=== PATIENT | female | born 1945 | race Caucasian/White ===

== ENCOUNTER → 2018-03-06 06:58 | Outpatient (CLI) | payer MEDICARE, SELFPAY ==
--- NOTE | 2018-03-06 07:29 | MRI_ITS ---
STUDY: MRI LEFT FOREFOOT WITHOUT CONTRAST REASON FOR EXAM: Female, 72 years old. Pain across the ball the foot times one year. TECHNIQUE: Standardized fat and water weighted pulse sequences were obtained in all 3 orthogonal planes. COMPARISON: None. FINDINGS: There is degenerative arthrosis of the metatarsophalangeal joint of the hallux with a hallux valgus deformity. Normal tibial and fibular sesamoids, with normal sesamoids-first metatarsal articulations. Normal interphalangeal joint of the hallux. Normal proximal and distal phalanges of the great toe. Normal medial and lateral heads of the flexor hallucis brevis tendons. Normal flexor and extensor hallucis longus tendons. Normal second through fifth metatarsophalangeal (MTP) joints. Normal interphalangeal joints of the second through fifth toes. Normal proximal, middle and distal phalanges of the second through fifth toes. Normal first through fourth intermetatarsal spaces. Normal flexor and extensor tendons of the second through fifth toes. Normal visualized metatarsi. Normal intrinsic muscles of the forefoot. There is focal diminished signal on the dorsal aspect adjacent to the proximal second metatarsal with calcification or small foreign body, series 6 image 06/09. MRI/Lower Ext/No Jt/w/o IMPRESSION: No fracture or periosteal reaction. No dominant mass or fluid collection. Electronically Signed: Tao Trimble MD at 9:37 EDT , Service support ,
== END ==
PROVIDERS: Family Provider Preventive Medicine Occupational Medicine; PCP Preventive Medicine Occupational Medicine; Visit Provider Podiatrist
DX: G57.60 Lesion of plantar nerve, unspecified lower limb (principal); M19.072 Primary osteoarthritis, left ankle and foot
CPT/HCPCS: 73718

== ENCOUNTER 2020-10-19 14:34 | Outpatient (RCR) | payer MEDICARE, SELFPAY ==
[2014-06-03 21:04] VITALS: BMI 19.7
[2020-10-19] MEDS: COVID-19 VACC, MRNA(PFIZER)/PF 30 MCG/0.3 ML SYRINGE IM (10:42)
[2020-11-09] MEDS: COVID-19 VACC, MRNA(PFIZER)/PF 30 MCG/0.3 ML SYRINGE IM (10:27)
== END 2020-10-19 23:59 ==
LOC: IMMUN 14:34
PROVIDERS: PCP Preventive Medicine Occupational Medicine; Visit Provider Family Medicine
DX: Z23 Encounter for immunization (principal)
CPT/HCPCS: 0001A; 0002A

== ENCOUNTER → 2022-04-03 | Outpatient (CLI) | payer MEDICARE, SELFPAY ==
--- NOTE | 2022-04-03 10:38 | ECHOD_ITS ---
Reason For Study: afib Procedure This was a 2D Doppler, Color Flow transthoracic echocardiogram. Exam performed in department. Left Ventricle Normal LV size. Left ventricular systolic function is normal. The estimated ejection fraction is 60 %. No regional wall motion abnormalities noted. Right Ventricle Normal RV size. Normal systolic function. Atria Normal left atrium. Normal right atrium. Mitral Valve Normal mitral valve. Tricuspid Valve Normal tricuspid valve. Mild (1+) tricuspid valve insufficiency. Pulmonary artery systolic pressure is 31 mmHg. Aortic Valve Normal aortic valve. Trisinus/trileaflet aortic valve. Pulmonic Valve Normal pulmonic valve. Great Vessels Normal aortic root. The pulmonary artery is normal size. Normal inferior vena cava. Pericardium/Pleural No pericardial effusion. MMode/2D Measurements & Calculations LVIDd: 4.5 cm IVSd: 0.78 cm Ao root diam: 3.2 cm LVIDs: 2.9 cm LVPWd: 0.69 cm RVDd: 2.7 cm FS: 34.6 % LAV(MOD-bp): 50.2 ml LVAd ap4: 22.4 cm2 SV(MOD-sp4): 40.6 ml LAV(MOD-bp) Indexed: 32.5 ml/m2 LVLd ap4: 6.8 cm LAV(MOD-sp2): 88.2 ml EDV(MOD-sp4): 60.4 ml LAV(MOD-sp4): 23.7 ml EDV(sp4-el): 62.8 ml LVAs ap4: 10.7 cm2 LVLs ap4: 5.3 cm ESV(MOD-sp4): 19.8 ml ESV(sp4-el): 18.3 ml EF(MOD-sp4): 67.1 % EF(sp4-el): 70.9 % SV(sp4-el): 44.5 ml LA A4 area: 11.4 cm2 LA dimension(2D): 3.2 cm RA A4 area: 14.4 cm2 Time Measurements MV dec time: 0.26 sec Doppler Measurements & Calculations MV E max santy: 68.7 cm/sec Lat Peak E' Santy: 6.2 cm/sec Med Peak E' Santy: 6.0 cm/sec MV A max santy: 60.3 cm/sec E/E' lat: 11.1 E/E' med: 11.5 MV E/A: 1.1 MV V2 max: 74.7 cm/sec Ao V2 max: 134.6 cm/sec MV max P.2 mmHg MV dec slope: 271.2 cm/sec2 Ao max P.3 mmHg MV V2 mean: 42.9 cm/sec Ao V2 mean: 94.8 cm/sec MV mean P.87 mmHg Ao mean P.1 mmHg MV V2 VTI: 33.0 cm Ao V2 VTI: 37.5 cm LV V1 max: 101.7 cm/sec PA V2 max: 79.8 cm/sec TR max santy: 262.5 cm/sec LV V1 max P.1 mmHg TR max P.6 mmHg LV V1 mean P.1 mmHg LV V1 mean: 67.4 cm/sec LV V1 VTI: 26.3 cm ECHO/Echo Complete Interpretation Summary Normal LV size. Left ventricular systolic function is normal. The estimated ejection fraction is 60 %. Pulmonary artery systolic pressure is 31 mmHg. Ordering Physician: Michel Lilly Referring Physician: Michel Lilly Performed By: Giuliana Capps RCS
== END | disposition home or self-care (01) ==
LOC: CVS 10:37
PROVIDERS: PCP Preventive Medicine Occupational Medicine; Referring Provider Internal Medicine Cardiovascular Disease; Visit Provider Internal Medicine Cardiovascular Disease
DX: R07.9 Chest pain, unspecified (principal); I48.91 Unspecified atrial fibrillation; I48.92 Unspecified atrial flutter
CPT/HCPCS: 93306

== ENCOUNTER → 2022-04-29 | Outpatient (CLI) | payer MEDICARE, SELFPAY ==
--- NOTE | 2022-04-29 09:21 | STRESSREP ---
Stress Test Report Pharmacologic mild cardial perfusion stress test. 76-year-old lady with a history of atrial fibrillation. Stress protocol: Resting EKG demonstrates normal sinus rhythm with a rate of 60 bpm normal intervals are noted resting blood pressure is 170/72 mmHg. 0.4 mg of regadenoson was infused per usual protocol followed by rapid intravenous saline flush injection continuous EKG monitoring was performed. The maximum heart rate was 92 bpm which was 63% of max impacted heart rate the maximum workload was 1 metabolic equivalent. At rest there were no ST or T wave changes noted to suggest abnormal flow reserve and at peak infusion nonspecific ST changes were noted with did not meet the criteria for ischemia. No clinical angina was noted. Myocardial perfusion protocol. 10.3 mCi of technetium 99m sestamibi was injected at rest. 0.4 mg of regadenoson was infused per usual protocol. At peak infusion 32.4 mCi of technetium 99m sestamibi was injected stress images were obtained stress and rest images were reconstructed and compared in the short axis vertical long and horizontal long axis. Gated images were also obtained. Perfusion SPECT analysis: Review of the stress images demonstrate normal uptake of tracer noted in all areas of the myocardium. The resting images similar demonstrate normal uptake of tracer noted in all areas of the myocardium. No areas of reversibility are noted to suggest ischemia and no previous infarct is noted. Gated SPECT analysis: The gated ejection fraction is 82%. Conclusion: Normal pharmacologic myocardial perfusion stress test. Preserved ejection fraction.
== END | disposition home or self-care (01) ==
PROVIDERS: PCP Preventive Medicine Occupational Medicine; Referring Provider Internal Medicine Cardiovascular Disease; Visit Provider Internal Medicine Cardiovascular Disease
DX: I48.91 Unspecified atrial fibrillation (principal); R07.9 Chest pain, unspecified
CPT/HCPCS: 78452; 93017; A9500; A4216; J2785

== ENCOUNTER 2022-10-07 08:47 | Outpatient (CLI) | payer MEDICARE, SELFPAY ==
--- NOTE | 2022-10-07 09:30 | RAD_ITS ---
PROCEDURE: Fluoroscopic guided right shoulder Injection DATE: 10/07/2022 INDICATION: Female, 77 years old. Adhesive capsulitis of the right shoulder PHYSICIAN: Viksah Soto M.D. MEDICATIONS: 12 mg of BETAMETHASONE and 4 cc of 1% LIDOCAINE. 2% lidocaine administered subcutaneously for local anesthesia. ACCESS SITE: Right shoulder. NEEDLE: 22-gauge spinal needle. FLUOROSCOPY TIME (if supplied): (0:37) minutes/seconds. 2 images were obtained. FINDINGS: The risks, benefits, and alternatives to the procedure were explained to the patient. The specific risks of bleeding, infection, and neurovascular injury were detailed and accepted. Witnessed informed consent was obtained. A the needle was positioned under radiograph fluoroscopic localization. Approximately 2 cc of ISOVUE-300 instilled for localization purposes. Medication was then injected. The patient tolerated the procedure well without any immediate complications. RAD/Inj/Asp Reyes Jt Should/Hip/Knee IMPRESSION: 1. Successful fluoroscopic guided right shoulder injection.. Electronically Signed: Vikash Soto MD at 11:04 EST ,
[2022-10-07] MEDS: Lidocaine 2% (5ml sdv) 5 ML VIAL.MPF INFILT (10:21)
[2022-10-07] MEDS: Betamethasone/Betamethasone 30 MG/5 ML Vial 12 MG INTRAARTIC (10:22)
[2022-10-07] MEDS: Lidocaine 1% (5 ml sdv) 5 ML Vial 4 ML OPERA.SITE (10:22)
== END 2022-10-07 23:59 | disposition home or self-care (01) ==
LOC: RAD 08:48
PROVIDERS: PCP Preventive Medicine Occupational Medicine; Referring Provider Specialist; Visit Provider Specialist
DX: M75.01 Adhesive capsulitis of right shoulder (principal)
CPT/HCPCS: 20610; 77002; Q9967; J0702

== ENCOUNTER 2023-04-13 15:36 | Emergency (ER) | payer MEDICARE, SELFPAY ==
[2023-04-13 15:37] VITALS: BP 180/73; PULSE 54; RESP 18; TEMP 34.5; O2SAT 98; BMI 18.8
[2023-04-13 16:09] VITALS: BP 176/71; PULSE 54; RESP 17; O2SAT 96
[2023-04-13 16:10] VITALS: BP 176/71; PULSE 51; RESP 17; O2SAT 99
--- NOTE | 2023-04-13 16:12 | ED.RN ---
PER PT, PT NOTICED A FLOATER IN RIGHT EYE. PT STATES IT DID NOT FEEL RIGHT. PER PT HER EYE FEELS NORMAL NOW.
--- NOTE | 2023-04-13 16:23 | CT_ITS ---
STUDY: CT BRAIN WITHOUT CONTRAST REASON FOR EXAM: Female, 77 years old. syncope RADIATION DOSAGE (If Supplied By Facility): CTDIvol = ( 44.99 ) mGy, DLP = ( 762.36 ) mGycm TECHNIQUE: Transaxial CT imaging of the brain was performed without administration of intravenous contrast material. Individualized dose optimization techniques were used for this CT. COMPARISON: No relevant priors. FINDINGS: Normal soft tissue structures. Normal calvarium. Normal size ventricles and extra-axial spaces for the patient''s age. There are areas of decreased attenuation within the white matter tracts of the supratentorial brain, consistent with microvascular disease changes. Old lacunar infarct of the left basal ganglia. Normal brainstem. Normal cerebellum. There is no intracranial hemorrhage. There are no findings of an acute ischemic infarction. Normal visualized paranasal sinuses. CT/Brain/Head without Contrast IMPRESSION: Chronic involutional changes of the brain. No acute abnormality. Electronically Signed: Oneil Burrell MD at 17:19 EDT ,
--- NOTE | 2023-04-13 16:25 | EX.ED.DYSGE1 ---
HPI <TERRANCE Matos - Last Filed: 04/13/23 18:48> History of Present Illness Chief Complaint: Weakness Narrative Narrative: Patient is a 77-year-old female history of Parkinson's disease, atrial fibrillation on Eliquis, hypertension presents the emergency department for sudden onset of dizziness, feeling of weakness. Patient states she was reading a book today, she did not feel right, started feel dizzy, she went to the bathroom, she had a diarrhea episode felt diaphoretic and felt like she might of passed out. Patient states after this episode she felt extremely weak and confused. She was brought here by her . Patient denies any significant pain, chest pain or shortness of breath. Patient denies any fall or trauma. PFSH <TERRANCE Matos - Last Filed: 04/13/23 18:48> [facility] Medical History Atrial fibrillation with rapid ventricular response (03/17/22) Chronic pain in left foot Essential (primary) hypertension Hyperlipemia Left-sided low back pain without sciatica Osteoporosis Parkinson disease Home Medications biotin 1 mg tablet 1,000 mg PO DAILY 03/22/22 [History Last Taken Unknown] calcium gluconate 500 mg tablet 500 mg PO BID 03/22/22 [History Last Taken Unknown] famotidine 40 mg tablet 40 mg PO DAILY 03/22/22 [History Last Taken Unknown] magnesium glycinate 200 mg PO DAILY 03/22/22 [History Last Taken Unknown] atenolol 25 mg tablet 12.5 mg PO DAILY 03/27/22 [History Last Taken Unknown] apixaban 5 mg tablet (Eliquis) 5 mg PO BID #60 tabs 04/10/22 [Rx Last Taken Unknown] carbidopa ER 50 mg-levodopa 200 mg tablet,extended release 1 tab PO TID 12/27/22 [History Last Taken Unknown] Allergy/AdvReac Type Severity Reaction Status Date / Time meloxicam [From [facility]] Allergy Unknown Swelling Verified 04/13/23 15:37 mold Allergy Unknown cough Verified 04/13/23 15:37 Penicillins Allergy Swelling Verified 04/13/23 15:37 Social History (Reviewed 12/27/22 @ 15:41 by Keyona Le TRANSMISSION SUPERINTENDENT, TRANSMISSION SUPERINTENDENT-C) Smoking Status: Never smoker alcohol intake: never substance use type: does not use caffeine: Yes Type: coffee ROS <TERRANCE Matos - Last Filed: 04/13/23 18:48> ROS ED ROS Narrative Constitutional: Negative for fever, chills, weight loss. Positive for weakness Eyes: Negative for vision loss, vision change, double vision ENT: Negative for any sore throat, ear pain, congestion Cardiovascular: Negative for any chest pain, tightness, palpitations Respiratory: Negative for any cough, sputum production, hemoptysis, dyspnea, dyspnea on exertion, orthopnea Gastrointestinal: Negative for any abdominal pain, nausea, vomiting, constipation, blood in stool, blood in vomit. Positive for diarrhea : Negative for any urinary frequency, dysuria, retention, blood in urine Muscle skeletal: Negative for any muscle joint pain, stiffness, myalgias, arthralgias, neck pain, back pain Neurological: Negative for any headache, syncope, numbness or tingling. Positive for feeling of dizziness, Skin: Negative for any rashes, lumps, itching, abrasions, lacerations Psychiatric: Negative for any depression, anxiety, stress, suicidal ideation, homicidal ideation Hematologic: Negative for any easy bruising, excessive bruising, easy bleeding Allergies: Negative for any eczema, hives, rash EXAM <TERRANCE Matos - Last Filed: 04/13/23 18:48> Physical Exam Narrative Exam Narrative: Vital signs reviewed. Patient is in no distress, patient is alert and orient x4. HEET: Head normocephalic atraumatic, TMs clear bilaterally. Posterior pharynx is clear, moist mucous membranes. Nares clear bilaterally. Neck: Supple with no lymphadenopathy or tenderness. No signs of meningismus, negative jolt sign. Cardiac: Bradycardic rhythm no murmurs gallops or rubs, equal peripheral pulses bilaterally. Respiratory: Lungs clear to auscultation bilaterally. No chest tenderness. Abdomen: Soft, nontender, nondistended. No abdominal bruit or pulsatile masses. No hepatosplenomegaly Extremities: No peripheral edema, no signs of gross trauma or deformity. Active full range of motion of all extremities. Neuro: Cranial nerves II through XII intact, no focal neurological deficits. NIH stroke scale 0. Horizontal nystagmus worse on the left than the right disappears after 2 seconds. Patient moved her head around Buckner-Hallpike maneuver completed, negative for any vertiginous signs. Skin: Clean dry and intact with no rash, purpura, petechiae, vesicles or pustules. Backs/flank: No CVA tenderness, no midline spinal tenderness, no deformity. Psych: Normal mood and affect. No SI, HI or acute psychosis. Const Vital Signs: 04/13/23 15:37 04/13/23 16:09 04/13/23 16:10 Temperature 94.1 F L Temperature Source Oral Pulse Rate 54 L 54 L 51 L Respiratory Rate 18 17 17 Respiratory Effort Respiratory Pattern Blood Pressure 180/73 H 176/71 H 176/71 H Blood Pressure Mean 108 106 106 Pulse Ox 98 96 99 Oxygen Delivery Method Room Air Room Air Room Air 04/13/23 16:12 04/13/23 16:32 04/13/23 18:23 Temperature Temperature Source Pulse Rate 65 Respiratory Rate 22 H Respiratory Effort Normal Non-Labored Respiratory Pattern Normal Blood Pressure 169/64 H Blood Pressure Mean 99 Pulse Ox 100 98 Oxygen Delivery Method Room Air Room Air <David John MD - Last Filed: 04/13/23 19:07> Physical Exam Const Vital Signs: 04/13/23 15:37 04/13/23 16:09 04/13/23 16:10 Temperature 94.1 F L Temperature Source Oral Pulse Rate 54 L 54 L 51 L Respiratory Rate 18 17 17 Respiratory Effort Respiratory Pattern Blood Pressure 180/73 H 176/71 H 176/71 H Blood Pressure Mean 108 106 106 Pulse Ox 98 96 99 Oxygen Delivery Method Room Air Room Air Room Air 04/13/23 16:12 04/13/23 16:32 04/13/23 18:23 Temperature Temperature Source Pulse Rate 65 Respiratory Rate 22 H Respiratory Effort Normal Non-Labored Respiratory Pattern Normal Blood Pressure 169/64 H Blood Pressure Mean 99 Pulse Ox 100 98 Oxygen Delivery Method Room Air Room Air MDM <TERRANCE Matos - Last Filed: 04/13/23 18:48> MDM Lab Data Labs: Laboratory Results - last 24 hr 04/13/23 04/13/23 16:31 17:23 WBC 7.9 RBC 3.54 L Hgb 11.4 L Hct 35.1 L MCV 99.2 H MCH 32.2 H MCHC 32.5 RDW Std Deviation 49.4 H RDW Coeff of Valeria 13.4 Plt Count 281 MPV 8.1 Immature Gran % (Auto) 1.900 H Neut % (Auto) 68.1 Lymph % (Auto) 20.6 Forrest % (Auto) 8.3 Eos % (Auto) 0.5 Baso % (Auto) 0.6 Absolute Neuts (auto) 5.4 Absolute Lymphs (auto) 1.63 Nucleated RBC % 0 Sodium 139 Potassium 4.1 Chloride 107 Carbon Dioxide 30.0 Anion Gap 2 L BUN 22 H Creatinine 1.08 H Estim Creat Clear Calc 34.36 Est GFR (MDRD) Af Amer 63 Est GFR (MDRD) Non-Af 52 L BUN/Creatinine Ratio 20.4 H Glucose 141 H Calcium 8.9 Troponin I High Sens 6 Urine Color Yellow Urine Clarity Clear Urine pH 7.0 Ur Specific [place] 1.015 Urine Protein 15 H Urine Glucose (UA) Normal Urine Ketones 5 H Urine Occult Blood 25 H Urine Nitrite Negative Urine Bilirubin Negative Urine Urobilinogen Normal Ur Leukocyte Esterase 100 H Urine RBC 0 SEEN Urine WBC 5-10 SEEN Ur Squamous Epith Cells 0 SEEN Urine Bacteria 0 SEEN Urine Mucus 0 SEEN Radiography Diagnostic Testing: Clinical Impression(s) from Imaging Studies Brain CT 04/13/23 16:23 IMPRESSION: Chronic involutional changes of the brain. No acute abnormality. Electronically Signed: Oneil Burrell MD at 17:19 EDT , Chest X-Ray 04/13/23 16:50 IMPRESSION: No definite acute or significant abnormality seen. Electronically Signed: Oneil Burrell MD at 17:24 EDT , EKG Sinus bradycardia with occasional PVC: Attestation: I personally reviewed and interpreted this EKG as follows: Interpretation: Sinus Bradycardia Comments: Rate of 57 bpm, OH 134 ms, QRS duration 76 ms, no acute ST elevation, no infarct noted. Treatment and Re-Evaluation :: Patient appears alert and orient x4 on my examination, patient's vital signs are stable, patient presents to the emergency department for complaints of dizziness, near syncope episode, generalized weakness. Patient NIH stroke scale was 0. Patient slight nystagmus however no vertiginous signs on Maximo-Hallpike. Patient will receive a CT scan of the brain to rule out any intracranial bleeding, mass. Patient received basic laboratory values, as well as a cardiac work-up Patient appears generally well, patient appears nontoxic, vital signs are stable. Patient on reevaluation feels better after IV fluids. Patient's laboratory values show a normal CBC, patient's chemistries show a creatinine of 1.08, this is slightly above baseline. GFR is 52. Patient's troponin was negative. Patient's chest x-ray showed no acute process. Patient did receive a CT scan of brain looking for any intracranial bleeding, skull fracture, this showed chronic involutional change of the brain, no acute abnormality. Patient's urinalysis showed leukocyte Estrace, 5-10 white blood cells however no bacteria. This will be sent for culture. Patient was able to ambulate with a steady gait. Patient does not feel any signs or symptoms of dizziness. She feels stable to go home. She will change positions closely, she will maintain hydration. She will follow-up outpatient. I spoke with her and her , patient will return for any worsening symptoms <David John MD - Last Filed: 04/13/23 19:07> [facility] Narrative Medical decision making narrative: Dr. John: I have personally performed a face to face assessment of the patient and have reviewed the CHILANGO Note. I performed a substantive portion of the visit including all aspects of the following. My brewer findings include: History is generalized weakness, near syncope after episode of diarrhea on toilet. No fall or striking of head. Exam is afebrile. Vital signs noted. Regular rate and rhythm with intermittent bradycardia. Lungs clear to auscultation bilaterally. Abdomen soft and nontender. Neurological examination nonfocal and nonlateralizing. Medical Decision Making: Check CT brain. Check labs. I reviewed her prior laboratory work and ED visits, but she has not been here since 2013. IV fluids, discharge. Other additions or changes: [None] History & Record Review Discussion w/independent historian: Patient and Family Additional record(s) reviewed:: Prior ED visit and Prior labs Lab Data Attestation: I reviewed the patient's lab results. Labs: Laboratory Results - last 24 hr 04/13/23 04/13/23 16:31 17:23 WBC 7.9 RBC 3.54 L Hgb 11.4 L Hct 35.1 L MCV 99.2 H MCH 32.2 H MCHC 32.5 RDW Std Deviation 49.4 H RDW Coeff of Valeria 13.4 Plt Count 281 MPV 8.1 Immature Gran % (Auto) 1.900 H Neut % (Auto) 68.1 Lymph % (Auto) 20.6 Forrest % (Auto) 8.3 Eos % (Auto) 0.5 Baso % (Auto) 0.6 Absolute Neuts (auto) 5.4 Absolute Lymphs (auto) 1.63 Nucleated RBC % 0 Sodium 139 Potassium 4.1 Chloride 107 Carbon Dioxide 30.0 Anion Gap 2 L BUN 22 H Creatinine 1.08 H Estim Creat Clear Calc 34.36 Est GFR (MDRD) Af Amer 63 Est GFR (MDRD) Non-Af 52 L BUN/Creatinine Ratio 20.4 H Glucose 141 H Calcium 8.9 Troponin I High Sens 6 Urine Color Yellow Urine Clarity Clear Urine pH 7.0 Ur Specific [place] 1.015 Urine Protein 15 H Urine Glucose (UA) Normal Urine Ketones 5 H Urine Occult Blood 25 H Urine Nitrite Negative Urine Bilirubin Negative Urine Urobilinogen Normal Ur Leukocyte Esterase 100 H Urine RBC 0 SEEN Urine WBC 5-10 SEEN Ur Squamous Epith Cells 0 SEEN Urine Bacteria 0 SEEN Urine Mucus 0 SEEN Radiography Diagnostic Testing: Clinical Impression(s) from Imaging Studies Brain CT 04/13/23 16:23 IMPRESSION: Chronic involutional changes of the brain. No acute abnormality. Electronically Signed: Oneil Burrell MD at 17:19 EDT , Chest X-Ray 04/13/23 16:50 IMPRESSION: No definite acute or significant abnormality seen. Electronically Signed: Oneil Burrell MD at 17:24 EDT , Discharge Plan Triage Chief Complaint: Weakness ED Midlevel Provider: Yuval Mcdaniels ED Provider: David John Dx/Rx/DC Orders Clinical Impression: Near syncope, Vaso-vagal reaction Instructions: Causes of Syncope, ED Near-Fainting- Vagal Reaction Prescriptions: No Action carbidopa-levodopa 50-200 mg tablet extended release 1 tab PO TID Patient Comments: TAKE 1 TABLET BY MOUTH TWICE A DAY calcium gluconate 500 mg tablet 500 mg PO BID famotidine 40 mg tablet 40 mg PO DAILY Patient Comments: TAKE 1 TABLET BY MOUTH EVERY DAY magnesium glycinate 100 mg magnesium capsule 200 mg PO DAILY Rx Instructions: once a day after a meal biotin 1 mg tablet 1,000 mg PO DAILY atenolol 25 mg tablet 12.5 mg PO DAILY Eliquis 5 mg tablet 5 mg PO BID Qty: 60 11RF Primary Care Provider: Quinn Kilpatrick Referrals: Quinn Kilpatrick DO [Primary Care Provider] - Activity Restrictions/Additional Instructions: Please follow-up outpatient. Disposition Disposition: Home, Self Care
[2023-04-13 16:32] VITALS: O2SAT 100
[2023-04-13 16:35] LABS: Absolute Lymphocyte Count 1.63 X10^3/uL (0.83-4.51); Absolute Neutrophil Count 5.4 X10^3/uL (2.0-7.7); Basophil# 0.05 X10^3/uL; Basophil% 0.6 % (0-1); Eosinophil# 0.04 X10^3/uL; Eosinophils% 0.5 % (0-5); Hematocrit 35.1 % (37-47); Hemoglobin 11.4 g/dL (12.0-15.0); Lymphocyte # 1.63 X10^3/ul (0.83-4.51); Lymphocyte % 20.6 % (19-41); Mean Corp Hgb Conc 32.5 g/dL (32-36); Mean Corpuscular Hgb 32.2 pg (27.0-32.0); Mean Corpuscular Volume 99.2 fL (81-99); Mean Platelet Vol. 8.1 fl (6.2-12.0); Monocyte# 0.66 X10^3/uL; Monocyte% 8.3 % (0-10); NRBC Flagged by Analyzer 0 % (0-5); Neutrophil # 5.38 X10^3/uL (2.7-7.7); Neutrophil % 68.1 % (47-70); Platelet Count 281 K/mm3 (150-450); RBC Distribution Width CV 13.4 % (11.6-14.6); RBC Distribution Width SD 49.4 fl (35.1-43.9); Red Blood Count 3.54 M/mm3 (4.2-5.4); White Blood Count 7.9 K/mm3 (4.4-11.0)
[2023-04-13] MEDS: 0.9% Normal Saline 1,000 ML 1000 ML IV (16:36)
--- NOTE | 2023-04-13 16:36 | EKG12_ITS ---
Test Reason : WEAKNESS Blood Pressure : / mmHG Vent. Rate : 057 BPM Atrial Rate : 057 BPM P-R Int : 134 ms QRS Dur : 076 ms QT Int : 462 ms P-R-T Axes : 066 047 049 degrees QTc Int : 449 ms Sinus bradycardia with occasional Premature ventricular complexes Otherwise normal ECG Present Confirmed by MILLA HOPE, GIORGIO ([id number]), book editor PAULIE RUIZ ([id number]) on 05/08/2023 2:11:08 PM Referred By: Confirmed By:NILE LOYOLA MD
--- NOTE | 2023-04-13 16:50 | RAD_ITS ---
STUDY: X-RAY CHEST REASON FOR EXAM: Female, 77 years old. chest pain TECHNIQUE: Single AP portable view of the chest. COMPARISON: 01/05/2015. FINDINGS: The lungs are clear and expanded. Stable small calcified granuloma, peripheral left lung base. There is no demonstrated pleural abnormality. Normal size heart. Normal mediastinum and cyndie. Normal visualized pulmonary arteries. Normal visualized aortic arch and descending thoracic aorta. Normal visualized thoracic spine. Normal visualized ribs, clavicles, and shoulders. There is no demonstrated abnormality of the visualized soft tissue structures of the upper abdomen. RAD/Chest 1 View (Portable) IMPRESSION: No definite acute or significant abnormality seen. Electronically Signed: Oneil Burrell MD at 17:24 EDT ,
[2023-04-13 17:01] LABS: Anion Gap 2 (5-15); BUN 22 mg/dL (7-18); BUN/Creat Ratio 20.4 RATIO (10-20); Calcium,Total 8.9 mg/dL (8.5-10.1); Chloride 107 mmol/L (98-107); Creatinine, Serum 1.08 mg/dL (0.55-1.02); EST Glomerular Filtration Rate 52 mL/min (>60); Est Glom Filt Rate - Afr Amer 63 mL/min (>60); Estimated Creatinine Clearance 34.36 ml/min; Glucose 141 mg/dL (74-106); Potassium 4.1 mmol/L (3.5-5.1); Sodium Level 139 mmol/L (136-145); Troponin-I HS (w/2H Reflex) 6 pg/mL (3.0-54.0)
[2023-04-13 17:28] LABS: Bacteria 0 SEEN /hpf (None Seen); Mucous, Urine 0 SEEN /hpf (<or=2+); Red Blood Cells-Urine 0 SEEN /hpf (0-5); Squamous Epithelial Cells - UA 0 SEEN /hpf (5-10)
[2023-04-13 17:29] LABS: Color, Urine Yellow (Yellow); Glucose, Dipstick Normal (Normal); Ketone-Dipstick 5 mg/dl (Negative); Leukocyte Esterase-Dipstick 100 /ul (Negative); Nitrite-Dipstick Negative (Negative); Occult Blood-Urine 25 /ul (Negative); Protein-Dipstick 15 mg/dl (Negative); Specific Gravity, Urine 1.015 (1.002-1.030); Urine Bilirubin Dipstick Negative (Negative); Urine Clarity Clear (Clear); Urine Urobilinogen Normal (Normal)
[2023-04-13 17:47] LABS: White Blood Cells 5-10 SEEN /hpf (0-5)
[2023-04-13 18:23] VITALS: BP 169/64; PULSE 65; RESP 22; O2SAT 98
[2023-04-13 18:33] LABS: Reflex Troponin-HS? (from REC) Y
== END 2023-04-13 19:07 | disposition home or self-care (01) ==
PROVIDERS: Nurse Practitioner; Emergency Provider Emergency Medicine; PCP Preventive Medicine Occupational Medicine; Visit Provider Emergency Medicine
DX: R55 Syncope and collapse (principal)
CPT/HCPCS: 70450; 71045; 80048; 81001; 84484; 85025; 87086; 87088; 93005; 96360; 96361; 99284; J7030; A4216

== ENCOUNTER 2023-11-07 21:41 | Emergency (ER) | payer MEDICARE, SELFPAY ==
[2023-11-07] VITALS (8 sets, daily range): BP systolic 174–186; BP diastolic 62–86; PULSE 52–60; RESP 15–18; TEMP 36.8; O2SAT 97–99; BMI 19.1
[2023-11-07 21:59] LABS: Absolute Lymphocyte Count 2.75 X10^3/uL (0.83-4.51); Absolute Neutrophil Count 4.3 X10^3/uL (2.0-7.7); Basophil# 0.05 X10^3/uL; Basophil% 0.6 % (0-1); Eosinophil# 0.09 X10^3/uL; Eosinophils% 1.1 % (0-5); Hematocrit 35.8 % (37-47); Hemoglobin 11.6 g/dL (12.0-15.0); Lymphocyte # 2.75 X10^3/ul (0.83-4.51); Lymphocyte % 33.9 % (19-41); Mean Corp Hgb Conc 32.4 g/dL (32-36); Mean Corpuscular Hgb 31.8 pg (27.0-32.0); Mean Corpuscular Volume 98.1 fL (81-99); Mean Platelet Vol. 8.2 fl (6.2-12.0); Monocyte% 11.1 % (0-10); NRBC Flagged by Analyzer 0 % (0-5); Neutrophil % 52.9 % (47-70); Platelet Count 294 K/mm3 (150-450); RBC Distribution Width CV 13.3 % (11.6-14.6); RBC Distribution Width SD 47.8 fl (35.1-43.9); Red Blood Count 3.65 M/mm3 (4.2-5.4); White Blood Count 8.1 K/mm3 (4.4-11.0)
[2023-11-07 22:13] LABS: Anion Gap 4 (5-15); BUN 28 mg/dL (7-18); BUN/Creat Ratio 23.7 RATIO (10-20); Calcium,Total 9.2 mg/dL (8.5-10.1); Chloride 105 mmol/L (98-107); Creatinine, Serum 1.18 mg/dL (0.55-1.02); EST Glomerular Filtration Rate 47 mL/min (>60); Est Glom Filt Rate - Afr Amer 57 mL/min (>60); Glucose 129 mg/dL (74-106); Potassium 4.2 mmol/L (3.5-5.1); Sodium Level 139 mmol/L (136-145)
--- NOTE | 2023-11-07 22:38 | EX.ED.DYSGE1 ---
HPI History of Present Illness Chief Complaint: Hypertension Detail of Chief Complaint: High blood pressure Informant: patient Narrative Narrative: Patient presents with elevated blood pressure that she noticed about 2 weeks ago. Patient had been in [place] and had not had any issues with her blood pressure. She started noticing an increase about 2 weeks ago and her systolics have been from 170s to as high as 200 systolic. Patient called the heart group whom she sees and they recently added amlodipine 2.5 mg daily to her atenolol. Patient denies any chest pain or shortness of breath. She denies severe headaches. At times she does have this odd sensation of feeling like she might pass out. [facility] Medical History Atrial fibrillation with rapid ventricular response (03/17/22) Chronic pain in left foot Essential (primary) hypertension Hyperlipemia Left-sided low back pain without sciatica Osteoporosis Parkinson disease Home Medications biotin 1 mg tablet 1,000 mg PO DAILY 03/22/22 [History Last Taken Unknown] calcium gluconate 500 mg tablet 500 mg PO BID 03/22/22 [History Last Taken Unknown] famotidine 40 mg tablet 40 mg PO DAILY 03/22/22 [History Last Taken Unknown] magnesium glycinate 200 mg PO DAILY 03/22/22 [History Last Taken Unknown] apixaban 5 mg tablet (Eliquis) 5 mg PO BID #60 tabs 04/10/22 [Rx Last Taken Unknown] carbidopa ER 50 mg-levodopa 200 mg tablet,extended release 0.5 tab PO .qid 05/20/23 [History Last Taken Unknown] multivitamin (Daily Multi-Vitamin tablet) 1 tab PO DAILY 05/20/23 [History Last Taken Unknown] amlodipine 2.5 mg tablet 2.5 mg PO DAILY #30 tabs 11/03/23 [Rx Last Taken Unknown] atenolol 25 mg tablet 12.5 mg PO BID 11/03/23 [History Last Taken Unknown] sulfamethoxazole 800 mg-trimethoprim 160 mg tablet 1 tab PO BID #6 TABLETS 11/07/23 [Rx Last Taken Unknown] Allergy/AdvReac Type Severity Reaction Status Date / Time meloxicam [From [facility]] Allergy Unknown Swelling Verified 11/07/23 21:44 mold Allergy Unknown cough Verified 11/07/23 21:44 Penicillins Allergy Swelling Verified 11/07/23 21:44 Social History Smoking Status: Never smoker alcohol intake: never substance use type: does not use caffeine: Yes Type: coffee ROS ROS ED ROS Narrative High blood pressure Review of Systems ROS Unobtainable: other Constitutional Constitutional ED: Reports lethargy; Denies chills, fever(s), sweats or weight loss Eyes Eyes: Denies blurry vision, change in vision or diplopia ENT ENT ED: Denies rhinorrhea or sore throat Cardiovascular Cardiovascular: Denies chest pain, orthopnea or racing heartbeat Respiratory/Chest Respiratory/Chest: Reports dyspnea on exertion; Denies cough, dyspnea, orthopnea or sputum Gastrointestinal Gastrointestinal: Denies abdominal pain, diarrhea, nausea or vomiting Genitourinary Genitourinary ED: Denies dysuria, hematuria or urinary frequency Musculoskeletal Musculoskeletal: Denies arthralgias, back pain, myalgias or neck pain Integumentary Denies abscess, Abrasions or rash Neurologic Neurologic: Denies headache(s) or weakness Psychiatric Psychiatric: Denies anxiety, depression or suicidal thoughts Endocrine Endocrinology: Denies polydipsia, polyphagia or polyuria Hematologic/Lymphatic Hematologic/Lymphatic: Denies easy bleeding, easy bruising or lymphadenopathy Allergic/Immunologic Allergic/Immunologic ED: Denies mouth swelling, tongue swelling or urticaria EXAM Physical Exam Const Vital Signs: 11/07/23 21:44 11/07/23 22:44 11/07/23 23:15 Temperature 98.3 F Temperature Source Temporal Pulse Rate 60 52 L Respiratory Rate 18 15 Respiratory Effort Normal Respiratory Pattern Normal Blood Pressure 178/72 H 183/66 H Blood Pressure Mean 107 99 Pulse Ox 97 Oxygen Delivery Method Room Air 11/07/23 23:20 11/07/23 23:25 11/07/23 23:30 Temperature Temperature Source Pulse Rate 54 L 54 L Respiratory Rate 17 17 Respiratory Effort Respiratory Pattern Blood Pressure 183/68 H 174/70 H 184/86 H Blood Pressure Mean 99 96 113 Pulse Ox 99 Oxygen Delivery Method 11/07/23 23:35 11/07/23 23:40 11/07/23 23:45 Temperature Temperature Source Pulse Rate 56 L 56 L 54 L Respiratory Rate 18 15 16 Respiratory Effort Respiratory Pattern Blood Pressure 186/69 H 180/62 H 182/68 H Blood Pressure Mean 103 96 103 Pulse Ox 99 Oxygen Delivery Method 11/08/23 00:24 Temperature 97.9 F Temperature Source Pulse Rate 63 Respiratory Rate 18 Respiratory Effort Respiratory Pattern Blood Pressure 182/58 H Blood Pressure Mean 99 Pulse Ox 99 Oxygen Delivery Method Positive well nourished and well developed General Appearance ED: well developed and NAD HEENT Reports TM's clear and moist mucous membranes normocephalic and atraumatic; Negative for trauma or tenderness Tympanic Membrane ED: Yes TM's clear Eyes PERRL and EOMs intact bilaterally General Eye ED: Negative for pale conjunctiva or scleral icterus Neck no lymphadenopathy, supple and no JVD General: Negative for tenderness Chest Wall inspection of chest normal and palpation of chest normal Chest: Negative for tenderness Resp normal respiratory effort and clear to auscultation bilaterally Effort and Inspection: Negative for respiratory distress or pain with movement Auscultation: Negative for rhonchi, wheezes or diminished lung sounds Cardio regular rate, regular rhythm, S1 normal heart sound, S2 normal heart sound and no murmurs Peripheral Pulses: pulses 2+ throughout GI normal to inspection, nondistended, normoactive bowel sounds, soft to palpation, non-tender, non-distended and no masses Back/Spine no CVA tenderness and no thoracic nor lumbar tenderness Extremity normal to inspection General Extremety ED: Negative for edema General Extremity: Negative for edema Neuro oriented x3, CN's II-XII intact bilaterally, no sensory deficits noted and gait normal Sensorium / Orientation: awake, alert, oriented to person, oriented to place and oriented to time Motor Exam: strength 5/5 throughout and strength abnormal Psych mental status grossly normal Skin no rashes or lesions noted and no wounds MDM MDM MDM Narrative Medical decision making narrative: Patient presents with elevated blood pressures. CBC with differential count of 8.1 with hemoglobin 11.6 and platelet count of 294. Chemistries unremarkable. Troponin normal at 7. Urinalysis positive for 500 excite esterase and 50-100 WBCs but no bacteria. Patient describes only mild may be increased in frequency. Denies dysuria. I did send off a urine culture. She was started on Bactrim. Patient was given amlodipine 5 mg p.o. Advised to increase her amlodipine from 2.5 mg daily to 5 mg daily. 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 Lab Data Attestation: I reviewed the patient's lab results. Labs: Laboratory Results - last 24 hr 11/07/23 11/07/23 21:51 23:12 WBC 8.1 RBC 3.65 L Hgb 11.6 L Hct 35.8 L MCV 98.1 MCH 31.8 MCHC 32.4 RDW Std Deviation 47.8 H RDW Coeff of Valeria 13.3 Plt Count 294 MPV 8.2 Immature Gran % (Auto) 0.400 Neut % (Auto) 52.9 Lymph % (Auto) 33.9 [place] % (Auto) 11.1 H Eos % (Auto) 1.1 Baso % (Auto) 0.6 Absolute Neuts (auto) 4.3 Absolute Lymphs (auto) 2.75 Nucleated RBC % 0 Sodium 139 Potassium 4.2 Chloride 105 Carbon Dioxide 30.0 Anion Gap 4 L BUN 28 H Creatinine 1.18 H Estim Creat Clear Calc 31.30 Est GFR (MDRD) Af Amer 57 L Est GFR (MDRD) Non-Af 47 L BUN/Creatinine Ratio 23.7 H Glucose 129 H Calcium 9.2 Troponin I High Sens 7 Urine Color Yellow Urine Clarity Clear Urine pH 6.0 Ur Specific [place] 1.015 Urine Protein 15 H Urine Glucose (UA) Normal Urine Ketones 5 H Urine Occult Blood 250 H Urine Nitrite Negative Urine Bilirubin Negative Urine Urobilinogen Normal Ur Leukocyte Esterase 500 H Urine RBC 10-25 SEEN Urine WBC 50-100 SEEN Ur Squamous Epith Cells 0-5 SEEN Calcium Oxalate Crystal 0 SEEN Uric Acid Crystals 0 SEEN Triple Phos Crystals 0 SEEN Other Crystals 0 SEEN Amorphous Sediment 0 SEEN Urine Bacteria 0 SEEN Hyaline Casts 0 SEEN Fine Granular Casts 0 SEEN Coarse Granular Casts 0 SEEN Waxy Casts 0 SEEN RBC Casts 0 SEEN WBC Casts 0 SEEN Urine Mucus 0 SEEN Urine Trichomonas 0 SEEN Urine Yeast 1+ EKG Initial EKG: Attestation: I personally reviewed and interpreted this EKG as follows: Comments: Sinus bradycardia with rate of 57 bpm with no acute ST segment changes Discharge Plan Triage Chief Complaint: Hypertension ED Provider: Christa Milner Dx/Rx/DC Orders Clinical Impression: Acute UTI, Hypertension Instructions: ED Hypertension, Established, ED Cystitis Female Adult Prescriptions: New sulfamethoxazole-trimethoprim [sulfamethoxazole-trimethoprim] 800-160 mg tablet 1 tab PO BID Qty: 6 0RF No Action carbidopa-levodopa 50-200 mg tablet extended release 0.5 tab PO .qid calcium gluconate 500 mg tablet 500 mg PO BID famotidine 40 mg tablet 40 mg PO DAILY Patient Comments: TAKE 1 TABLET BY MOUTH EVERY DAY magnesium glycinate 100 mg magnesium capsule 200 mg PO DAILY Rx Instructions: once a day after a meal multivitamin [Daily Multi-Vitamin] Tablet 1 tab PO DAILY biotin 1 mg tablet 1,000 mg PO DAILY Eliquis 5 mg tablet 5 mg PO BID Qty: 60 11RF atenolol 25 mg tablet 12.5 mg PO BID amlodipine 2.5 mg tablet 2.5 mg PO DAILY Qty: 30 11RF Primary Care Provider: Quinn Kilpatrick Referrals: Quinn Kilpatrick DO [Primary Care Provider] - 3-5 Days Activity Restrictions/Additional Instructions: Take 5 mg of the amlodipine daily and continue with your current atenolol dose. Disposition Disposition: Home, Self Care Discharge Date/Time: 11/08/23 00:25
[2023-11-07 23:17] LABS: Bacteria 0 SEEN /hpf (None Seen); Mucous, Urine 0 SEEN /hpf (<or=2+)
[2023-11-07 23:26] LABS: Troponin-I HS 7 pg/mL (3.0-54.0)
[2023-11-07 23:32] LABS: Color, Urine Yellow (Yellow); Glucose, Dipstick Normal (Normal); Ketone-Dipstick 5 mg/dl (Negative); Leukocyte Esterase-Dipstick 500 /ul (Negative); Nitrite-Dipstick Negative (Negative); Occult Blood-Urine 250 /ul (Negative); Protein-Dipstick 15 mg/dl (Negative); Specific Gravity, Urine 1.015 (1.002-1.030); Urine Bilirubin Dipstick Negative (Negative); Urine Clarity Clear (Clear); Urine Urobilinogen Normal (Normal)
[2023-11-07 23:44] LABS: Red Blood Cells-Urine 10-25 SEEN /hpf (0-5); White Blood Cells 50-100 SEEN /hpf (0-5)
[2023-11-07 23:45] LABS: Amorphous Sediment 0 SEEN; Calcium Oxalate Crystals Ur 0 SEEN /hpf (<or=2+); Coarse Granular Cast 0 SEEN /lpf (0-5 /lpf); Fine Granular Cast- Urine 0 SEEN /lpf (0-5); Hyaline Cast 0 SEEN /lpf (0-5); Other Crystals-Urine 0 SEEN /hpf (None Seen); Red Cell Cast 0 SEEN /lpf (None Seen); Squamous Epithelial Cells - UA 0-5 SEEN /hpf (5-10); Trichomonas 0 SEEN /hpf (None Seen); Triple Phosphate Crystals Ur 0 SEEN /hpf (<or=1+); Uric Acid Crystals Ur 0 SEEN /hpf (<or=1+); Waxy Cast-Urine 0 SEEN /lpf (None Seen); White Cell Cast 0 SEEN /lpf (None Seen); Yeast-Urine 1+ /hpf (None Seen)
--- NOTE | 2023-11-07 23:53 | EKG12_ITS ---
Test Reason : HYPERTENSION Blood Pressure : / mmHG Vent. Rate : 057 BPM Atrial Rate : 057 BPM P-R Int : 130 ms QRS Dur : 074 ms QT Int : 436 ms P-R-T Axes : 053 038 044 degrees QTc Int : 424 ms Sinus bradycardia Minimal voltage criteria for LVH, may be normal variant ( Sokolow-Astorga ) Borderline ECG Confirmed by Juan Dodson ([id number]), editor news PAULIE RUIZ ([id number]) on 11/11/2023 8:56:42 AM Referred By: KAMI Confirmed By:Juan Dodson
[2023-11-08] MEDS: amLODIPine 5 MG Tablet PO (00:09)
[2023-11-08] MEDS: Smz/Tmp Ds Tablet 1 TABLET PO (00:10)
[2023-11-08 00:24] VITALS: BP 182/58; PULSE 63; RESP 18; TEMP 36.6; O2SAT 99
== END 2023-11-08 00:25 | disposition home or self-care (01) ==
PROVIDERS: Emergency Provider Emergency Medicine; PCP Preventive Medicine Occupational Medicine; Visit Provider Emergency Medicine
DX: N39.0 Urinary tract infection, site not specified (principal); I10 Essential (primary) hypertension
CPT/HCPCS: 80048; 81001; 84484; 85025; 87086; 93005; 99285; A4216

== ENCOUNTER 2024-01-19 22:29 | Inpatient (IN) | payer MEDICARE, SELFPAY ==
[2024-01-19 22:29] VITALS: BP 176/114; PULSE 140; RESP 28; TEMP 36.9; O2SAT 98
--- NOTE | 2024-01-19 22:38 | EKG12_ITS ---
Test Reason : CP Blood Pressure : / mmHG Vent. Rate : 140 BPM Atrial Rate : 000 BPM P-R Int : 000 ms QRS Dur : 070 ms QT Int : 298 ms P-R-T Axes : 000 040 181 degrees QTc Int : 454 ms Critical Test Result: High HR Atrial fibrillation with rapid ventricular response Minimal voltage criteria for LVH, may be normal variant ( Sokolow-Astorga ) Marked ST abnormality, possible inferior subendocardial injury Abnormal ECG Confirmed by JUAN HOPE, ANITA ([id number]), business editor PAULIE RUIZ ([id number]) on 01/20/2024 2:11:38 PM Referred By: Confirmed By:ANITA MARTINEZ MD
--- NOTE | 2024-01-19 22:38 | RAD_ITS ---
EXAM: XR CHEST, 1 VIEW CLINICAL INDICATION: chest pain TECHNIQUE: Frontal view of the chest. COMPARISON: 04/13/2023. FINDINGS: LUNGS AND PLEURAL SPACES: Small calcified granuloma left lung base. No pneumothorax. No effusion. HEART: Unremarkable. Cardiac silhouette not enlarged. MEDIASTINUM: Central airways and mediastinal contour are unremarkable. BONES/JOINTS: Unremarkable. No acute fracture. SOFT TISSUES: Unremarkable. RAD/Chest 1 View (Portable) IMPRESSION: No acute cardiopulmonary abnormality. Electronically Signed: Juan Wing MD at 23:19 EDT ,
--- NOTE | 2024-01-19 22:39 | EDS_ITS ---
HPI History of Present Illness Chief Complaint: Chest Pain Informant: patient, spouse/S.O. and EMS Onset/Context/Timing Onset: Hours (1-2) Activity at onset: sudden, onset and activity on onset (Walking up basement steps carrying container of water) Timing: Continuous Quality: Positive for Burning Location: Substernal (With aching in both upper extremities) Current Severity: Moderate Maximum Severity: Moderate Worsened By: Nothing; Not Worsened By Breathing Relieved By: Nothing (Tried eating because it felt like reflux but did not help) Associated Symptoms: Positive for Dyspnea (A little, briefly but not now), Acid Reflux ([place] like it) and - (Weak); Negative for Nausea, Diaphoresis, Cough, Fever or Palpitations Narrative Narrative: 78-year-old female with a history of A-fib on Eliquis and atenolol, presents around 10:30 PM after having had sudden onset of chest pain and bilateral upper extremity discomfort for the last 1-2 hours. Does not feel like her heart is racing. confirms that she was diagnosed with A-fib 1 or 2 years ago and was put on Eliquis at that time, has taken her atenolol tonight, and has been in A-fib before, does not know if she is usually in it or out of it, but the patient cannot tell me if she had similar symptoms the last time she was in A- fib which she cannot recall. No recent medication changes. She did already take her atenolol tonight. No recent illness or other [id number] medications that are new recently. She does state that about 1 or 2 weeks ago she was at a track meet and had a syncopal episode. The paramedics were called and according to the they did an EKG and said everything was okay and she did not go to the hospital. [facility] Medical History Atrial fibrillation with rapid ventricular response (03/17/22) Chronic pain in left foot Parkinson disease Left-sided low back pain without sciatica Osteoporosis Hyperlipemia Essential (primary) hypertension Home Medications ?Medication ?Instructions ?Recorded ?Last Taken ?Type famotidine 40 mg tablet 40 mg PO DAILY 03/22/22 Unknown History magnesium glycinate 200 mg PO DAILY 03/22/22 Unknown History apixaban 5 mg tablet (Eliquis) 5 mg PO BID #60 tabs 04/10/22 Unknown Rx carbidopa ER 50 mg-levodopa 200 mg 0.5 tab PO Q6H 05/20/23 Unknown History tablet,extended release multivitamin (Daily Multi-Vitamin 1 tab PO DAILY 05/20/23 Unknown History tablet) atenolol 25 mg tablet 12.5 mg PO BID 11/03/23 Unknown History amlodipine 2.5 mg tablet 2.5 mg PO DAILY PRN HTN 11/25/23 Unknown History rosuvastatin 10 mg tablet (Crestor) 10 mg PO DAILY 11/25/23 Unknown History Allergy/AdvReac Type Severity Reaction Status Date / Time meloxicam (From [facility]) Allergy Unknown Swelling Verified 11/25/23 10:13 mold Allergy Unknown cough Verified 11/25/23 10:13 Penicillins Allergy Swelling Verified 11/25/23 10:13 Social History Smoking Status: Never smoker alcohol intake: never substance use type: does not use caffeine: Yes Type: coffee ROS ROS ED Constitutional Constitutional ED: Reports fatigue and weakness; Denies chills or fever(s) Eyes Eyes: Denies change in vision or diplopia ENT ENT ED: Denies rhinorrhea or sore throat Cardiovascular Cardiovascular: Reports chest pain; Denies palpitations or racing heartbeat Respiratory/Chest Respiratory/Chest: Reports dyspnea on exertion; Denies cough Gastrointestinal Gastrointestinal: Denies abdominal pain, diarrhea, nausea or vomiting Genitourinary Genitourinary ED: Denies dysuria or hematuria Musculoskeletal Musculoskeletal: Denies back pain or neck pain Integumentary Denies abscess or rash Neurologic Neurologic: Denies headache(s), paresthesias or weakness Psychiatric Psychiatric: Denies anxiety or suicidal thoughts EXAM Physical Exam Const Vital Signs: 01/19/24 22:29 01/19/24 22:39 01/19/24 22:56 Temperature 98.4 F Temperature Source Oral Pulse Rate 140 H Respiratory Rate 28 H Respiratory Effort Normal Blood Pressure 176/114 H Blood Pressure Mean 134 Pulse Ox 98 Oxygen Delivery Method Room Air Room Air 01/19/24 23:03 01/19/24 23:11 01/20/24 00:00 Temperature Temperature Source Pulse Rate 149 H 144 H 153 H Respiratory Rate 14 13 18 Respiratory Effort Blood Pressure 147/106 H 161/127 H 154/103 H Blood Pressure Mean 119 138 120 Pulse Ox 98 96 99 Oxygen Delivery Method Room Air Room Air Room Air 01/20/24 00:24 01/20/24 00:36 01/20/24 01:00 Temperature Temperature Source Pulse Rate 78 79 51 L Respiratory Rate 17 16 16 Respiratory Effort Blood Pressure 122/84 H 132/83 H Blood Pressure Mean 96 99 Pulse Ox 96 98 98 Oxygen Delivery Method Room Air Room Air Room Air 01/20/24 02:00 Temperature Temperature Source Pulse Rate 51 L Respiratory Rate 13 Respiratory Effort Blood Pressure 155/87 H Blood Pressure Mean 109 Pulse Ox 97 Oxygen Delivery Method Room Air Positive well nourished and well developed General Appearance ED: well developed and NAD HEENT Reports moist mucous membranes normocephalic and atraumatic Eyes PERRL and EOMs intact bilaterally Neck full ROM, supple and no JVD Chest Wall inspection of chest normal and palpation of chest normal Resp normal respiratory effort and clear to auscultation bilaterally Cardio no murmurs Rate: tachycardic Rhythm: abnormal rhythm irregularly irregular Peripheral Pulses: pulses 2+ throughout GI non-tender and non-distended Auscultation: normoactive bowel sounds Palpation: soft Back/Spine no CVA tenderness General Back: other FROM Extremity normal to inspection General Extremety ED: Negative for edema, pulses abnormal or tenderness General Extremity: Negative for edema or pulses abnormal Neuro oriented x3, CN's II-XII intact bilaterally and no sensory deficits noted Sensorium / Orientation: awake and alert Motor Exam: strength 5/5 throughout Psych mental status grossly normal Skin no rashes or lesions noted and no wounds Heart Score History: Moderately Suspicious ECG: Nonspecific Repolarization Age: >/= 65 years Risk Factors: 1 or 2 Risk Factors Troponin: >1 - <3 Normal Limit Score: 6 MDM MDM MDM Narrative Medical decision making narrative: Differential here includes acute coronary syndrome in addition to discomfort simply because of her being in A-fib with RVR. The initial EKG shows rate dependent/related nonspecific ST-T wave abnormalities, no sign of a STEMI on my interpretation. The morphology and axis are similar to old EKG. Obtained a one-view portable chest x-ray to screen for other intrathoracic disease that could account for tachycardia such as pneumonia, my interpretation it is normal. Blood work results noted. Renal function similar to prior. Her first troponin is 15 well within normal limits. She initially given metoprolol 5 mg IV, after 45 minutes it did not seem to affect her rate at all and her blood pressure was still high so she was then given Cardizem 20 mg bolus. Subsequently, it was noted that her heart rate was in the 40-50 range, she states this is normal for her, she does not feel lightheaded, and in reviewing her monitor she appears to have converted to normal sinus rhythm. Repeat EKG confirms this, as well as on my interpretation showing no acute injury pattern. Although the IV metoprolol dose did not help her heart rate, she stated that her discomfort resolved after that. After converting to sinus rhythm after the Cardizem, she still felt asymptomatic and basically felt back to normal. Her second troponin went up to 104 (from 15). Heart score 6. I discussed w/ Cardiology Dr. Lilly. In reviewing old records it does seem that according to what has been measured, she is usually not in A-fib and it is more likely to be paroxysmal. She has had negative stress test in the past, last 1 was April 2022. Cardiology in agreement, admit for probable stress testing and further observation. History & Record Review Additional record(s) reviewed:: Prior outpatient record (cardiology visit 11/25/23) Lab Data Attestation: I reviewed the patient's lab results. Labs: Laboratory Results - last 24 hr 01/19/24 01/20/24 22:34 00:38 WBC 7.5 RBC 3.62 L Hgb 11.6 L Hct 36.4 L MCV 100.6 H MCH 32.0 MCHC 31.9 L RDW Std Deviation 45.7 H RDW Coeff of Valeria 12.3 Plt Count 308 MPV 8.5 Immature Gran % (Auto) 0.400 Neut % (Auto) 54.8 Lymph % (Auto) 32.8 [place] % (Auto) 10.3 H Eos % (Auto) 0.9 Baso % (Auto) 0.8 Absolute Neuts (auto) 4.1 Absolute Lymphs (auto) 2.45 Nucleated RBC % 0 Sodium 140 Potassium 4.1 Chloride 107 Carbon Dioxide 28.0 Anion Gap 5 BUN 28 H Creatinine 1.18 H Estim Creat Clear Calc 31.51 Est GFR (MDRD) Af Amer 57 L Est GFR (MDRD) Non-Af 47 L BUN/Creatinine Ratio 23.7 H Glucose 159 H Calcium 9.0 Troponin I High Sens 15 104 H Radiography Diagnostic Testing: Clinical Impression(s) from Imaging Studies Chest X-Ray 01/19/24 22:38 IMPRESSION: No acute cardiopulmonary abnormality. Electronically Signed: Juan Wing MD at 23:19 EDT Reading Location ID and State: [address] [place] [address] Tel , Service support , Rhythm Strip Rhythm Strip: A-fib Rate: 140 Ectopy: None EKG Initial EKG: Attestation: I personally reviewed and interpreted this EKG as follows: Interpretation: No Acute Injury Pattern, Atrial Fibrillation (at 140) and Non-Specific ST Changes Prior EKG tracings: available for review Prior: Changed (NSR on 11/08/23; axis/morphology similar) Follow-up EKG: Attestation: I personally reviewed and interpreted this EKG as follows: Interpretation: Sinus Rhythm and No Acute Injury Pattern Comments: converted to NSR Management Discussion w/another healthcare provider: Hospitalist and Clinical Nursing Assistant (cardiology [facility]) Critical Care Time Critical Care Time: Yes Critical care time (excluding procedures): 30-74 minutes (33 min), Including time spent:, Discussing w/Patient &/or Family/Chemistry Instructor and Performing Direct Patient Care at Bedside Discharge Plan Triage Chief Complaint: Chest Pain ED Provider: Tao Pelayo Dx/Rx/DC Orders Clinical Impression: Atrial fibrillation with rapid ventricular response, Chest pain Prescriptions: Continued carbidopa-levodopa 50-200 mg tablet extended release 0.5 tab PO Q6H famotidine 40 mg tablet 40 mg PO DAILY Patient Comments: TAKE 1 TABLET BY MOUTH EVERY DAY magnesium glycinate 100 mg magnesium capsule 200 mg PO DAILY Rx Instructions: once a day after a meal multivitamin [Daily Multi-Vitamin] Tablet 1 tab PO DAILY amlodipine 2.5 mg tablet 2.5 mg PO DAILY PRN (Reason: HTN) rosuvastatin [Crestor] 10 mg tablet 10 mg PO DAILY Eliquis 5 mg tablet 5 mg PO BID Qty: 60 11RF atenolol 25 mg tablet 12.5 mg PO BID Primary Care Provider: Quinn Kilpatrick Print Language: Citizen Of [place] Disposition Disposition: Acute Care [facility]
[2024-01-19 23:03] VITALS: BP 147/106; PULSE 149; RESP 14; O2SAT 98
[2024-01-19] MEDS: Aspirin 81 MG TAB.CHEW 162 MG PO (23:03)
[2024-01-19] MEDS: Metoprolol Tartrate 5 MG/5 ML Vial IV (23:03)
[2024-01-19 23:05] VITALS: BMI 19.2
[2024-01-19 23:09] LABS: Absolute Lymphocyte Count 2.45 X10^3/uL (0.83-4.51); Absolute Neutrophil Count 4.1 X10^3/uL (2.0-7.7); Basophil# 0.06 X10^3/uL; Basophil% 0.8 % (0-1); Eosinophil# 0.07 X10^3/uL; Eosinophils% 0.9 % (0-5); Hematocrit 36.4 % (37-47); Hemoglobin 11.6 g/dL (12.0-15.0); Lymphocyte # 2.45 X10^3/ul (0.83-4.51); Lymphocyte % 32.8 % (19-41); Mean Corp Hgb Conc 31.9 g/dL (32-36); Mean Corpuscular Volume 100.6 fL (81-99); Mean Platelet Vol. 8.5 fl (6.2-12.0); Monocyte# 0.77 X10^3/uL; Monocyte% 10.3 % (0-10); NRBC Flagged by Analyzer 0 % (0-5); Neutrophil # 4.09 X10^3/uL (2.7-7.7); Neutrophil % 54.8 % (47-70); Platelet Count 308 K/mm3 (150-450); RBC Distribution Width CV 12.3 % (11.6-14.6); RBC Distribution Width SD 45.7 fl (35.1-43.9); Red Blood Count 3.62 M/mm3 (4.2-5.4); White Blood Count 7.5 K/mm3 (4.4-11.0)
[2024-01-19 23:11] VITALS: BP 161/127; PULSE 144; RESP 13; O2SAT 96
[2024-01-19 23:30] LABS: Anion Gap 5 (5-15); BUN 28 mg/dL (7-18); BUN/Creat Ratio 23.7 RATIO (10-20); Chloride 107 mmol/L (98-107); Creatinine, Serum 1.18 mg/dL (0.55-1.02); EST Glomerular Filtration Rate 47 mL/min (>60); Est Glom Filt Rate - Afr Amer 57 mL/min (>60); Estimated Creatinine Clearance 31.51 ml/min; Glucose 159 mg/dL (74-106); Potassium 4.1 mmol/L (3.5-5.1); Sodium Level 140 mmol/L (136-145); Troponin-I HS (w/2H Reflex) 15 pg/mL (3.0-54.0)
[2024-01-20] VITALS (17 sets, daily range): BP systolic 122–159; BP diastolic 57–103; PULSE 51–153; RESP 13–18; TEMP 36.4–36.9; O2SAT 96–100; BMI 18.9
[2024-01-20] MEDS: dilTIAZem 25 MG/5 ML Vial 20 MG IV BOLUS (00:07)
[2024-01-20 01:05] LABS: Reflex Troponin-HS? (from REC) Y
--- NOTE | 2024-01-20 01:09 | EKG12_ITS ---
Test Reason : REPEAT Blood Pressure : / mmHG Vent. Rate : 052 BPM Atrial Rate : 052 BPM P-R Int : 136 ms QRS Dur : 070 ms QT Int : 434 ms P-R-T Axes : 087 023 041 degrees QTc Int : 403 ms Sinus bradycardia Otherwise normal ECG Confirmed by ANITA MARTINEZ MD ([id number]), field map editor PAULIE RUIZ ([id number]) on 01/20/2024 2:13:34 PM Referred By: Confirmed By:ANITA MARTINEZ MD
[2024-01-20 01:39] LABS: Troponin-I HS 104 pg/mL (3.0-54.0)
--- NOTE | 2024-01-20 02:16 | PCM.HP.STD ---
[facility] - General General Date of Admission: 01/20/24 Date of Service: 01/20/24 Chief Complaint: Chest Pain. [facility] Narrative WILL GONZALEZ, is a 78 F with a past medical history of essential hypertension, hyperlipidemia, chronic atrial fibrillation (2021); on Eliquis, Parkinson's disease; on Sinemet, GERD; on Pepcid, osteoporosis and OA; with chronic Left-sided low back pain (without sciatica) plus chronic pain in her Left foot who presents to [facility] chest pain. Ms. Gonzalez reports her symptoms began approximately 1 to 2 hours prior to arrival with the abrupt-onset of chest pain that was substernal, burning, moderate and with associated aching in both upper extremities and with nothing making the pain better or worse with her pain persisting for approximately 2 hours. She then tried eating because it felt similar to previous GERD but her symptoms did not improve. She states she has been taking her atenolol and Eliquis as prescribed and has been in atrial fibrillation before but she is not aware of when she is in or out of it. She denies similar previous episodes. She also admits to mild dyspnea and fatigue with generalized weakness but she denies related fever, chills, nausea, vomiting or palpitations and she also denies recent illness, new medications or recent rghp-gip-hvowrin agents but she does admit to a syncopal episode at a track meet approximately 1 to 2 weeks ago where paramedics were called and they performed an EKG and said everything was okay so she did not go to the hospital and seek further medical attention. In the ER she was noted to have atrial fibrillation; with rapid ventricular response of approximately 150 bpm with EKG revealing rate dependent/rate related nonspecific ST-T wave abnormalities with no signs of STEMI but she did have an elevated second troponin rising from 15 ng/mL present on admission and rising to 104 pg/mL consistent with suspected non-ST elevation IN due to atrial fibrillation with RVR in the setting of recent syncopal event and she was then admitted to the PCU for ongoing care for status expected to be greater than 2 midnights. [facility] Medical History Atrial fibrillation with rapid ventricular response (03/17/22) Chronic pain in left foot Parkinson disease Left-sided low back pain without sciatica Osteoporosis Hyperlipemia Essential (primary) hypertension Home Medications ?Medication ?Instructions ?Recorded ?Last Taken ?Type famotidine 40 mg tablet 40 mg PO DAILY 03/22/22 Unknown History magnesium glycinate 200 mg PO DAILY 03/22/22 Unknown History apixaban 5 mg tablet (Eliquis) 5 mg PO BID #60 tabs 04/10/22 Unknown Rx carbidopa ER 50 mg-levodopa 200 mg 0.5 tab PO Q6H 05/20/23 Unknown History tablet,extended release multivitamin (Daily Multi-Vitamin 1 tab PO DAILY 05/20/23 Unknown History tablet) atenolol 25 mg tablet 12.5 mg PO BID 11/03/23 Unknown History amlodipine 2.5 mg tablet 2.5 mg PO DAILY PRN HTN 11/25/23 Unknown History rosuvastatin 10 mg tablet (Crestor) 10 mg PO DAILY 11/25/23 Unknown History Allergy/AdvReac Type Severity Reaction Status Date / Time meloxicam (From [facility]) Allergy Unknown Swelling Verified 11/25/23 10:13 mold Allergy Unknown cough Verified 11/25/23 10:13 Penicillins Allergy Swelling Verified 11/25/23 10:13 Social History Smoking Status: Never smoker alcohol intake: never substance use type: does not use caffeine: Yes Type: coffee ROS ROS Narrative Review of systems: General: Patient admits to generalized fatigue and weakness as per HPI. She denies fever or chills. HENT: Denies headache, denies stuffy nose, denies sore throat EYES: Denies changes in vision or discharge from eyes. Resp: Denies cough, denies shortness of breath Cardiac: Patient admits to chest pain as per HPI. She denies palpitations or heart racing in spite of being in rapid ventricular response. GI: Denies abdominal pain, denies changes in bowel, denies nausea or vomiting : Denies changes in urination Extremity: Denies swelling Musculoskeletal: Feels somewhat generally weak and unwell but she denies arthralgias or myalgias. Neuro: Patient denies headache, paresthesias or focal neurologic weakness. Heme: Denies any bleeding or bruising Skin: Denies rashes Psychiatric: No complaints voiced related to uncontrolled depression or anxiety. Endocrine: No polyuria, polydipsia or polyphagia. The rest of the 14 point ROS was negative except for positives in HPI. Vital Signs Vital Signs Vital Signs: 01/19/24 22:29 01/19/24 22:39 01/19/24 22:56 Temperature 98.4 F Temperature Source Oral Pulse Rate 140 H Respiratory Rate 28 H Respiratory Effort Normal Blood Pressure 176/114 H Blood Pressure Mean 134 Pulse Ox 98 Oxygen Delivery Method Room Air Room Air 01/19/24 23:03 01/19/24 23:11 01/20/24 00:00 Temperature Temperature Source Pulse Rate 149 H 144 H 153 H Respiratory Rate 14 13 18 Respiratory Effort Blood Pressure 147/106 H 161/127 H 154/103 H Blood Pressure Mean 119 138 120 Pulse Ox 98 96 99 Oxygen Delivery Method Room Air Room Air Room Air 01/20/24 00:24 01/20/24 00:36 01/20/24 01:00 Temperature Temperature Source Pulse Rate 78 79 51 L Respiratory Rate 17 16 16 Respiratory Effort Blood Pressure 122/84 H 132/83 H Blood Pressure Mean 96 99 Pulse Ox 96 98 98 Oxygen Delivery Method Room Air Room Air Room Air 01/20/24 02:00 Temperature Temperature Source Pulse Rate 51 L Respiratory Rate 13 Respiratory Effort Blood Pressure 155/87 H Blood Pressure Mean 109 Pulse Ox 97 Oxygen Delivery Method Room Air Weight Weight: 112 lb Body Mass Index (BMI) 19.2 Physical Exam Const alert, oriented x3, no apparent distress, average body habitus and healthy appearing General Appearance: cooperative HEENT normocephalic, head/scalp atraumatic, hearing grossly normal bilaterally and moist oral mucous membranes Eyes PERRL and EOMs intact bilaterally Neck no lymphadenopathy and supple Resp normal respiratory effort, no retractions, no use of accessory muscles and clear to auscultation bilaterally Cardio regular rate and regular rhythm Cardio Narrative: Patient in sinus rhythm @ 55 bpm. GI normal to inspection, nondistended, normoactive bowel sounds, soft to palpation, non-tender and non-distended Extremity normal to inspection, full ROM and no clubbing, cyanosis or edema Skin Skin Narrative: Patient has no evidence of abscess or rash. Neuro oriented x3, CN's II-XII intact bilaterally, moves all extremities and no focal motor deficits Neuro Narrative: Patient has a parkinsonian tremor of jaw and upper extremities. Sensorium / Orientation: awake, alert, oriented to person, oriented to place and oriented to time Speech: speech normal Motor Exam: strength 5/5 throughout Psych affect normal Results Medical Records Data Attestation: I reviewed the patient's medical records Lab / Micro Data Attestation: I reviewed the patient's lab results. 01/19/24 22:34 01/19/24 22:34 Labs: Laboratory Results - last 24 hr 01/19/24 22:34: WBC 7.5, RBC 3.62 L, Hgb 11.6 L, Hct 36.4 L, MCV 100.6 H, MCH 32.0, MCHC 31.9 L, RDW Std Deviation 45.7 H, RDW Coeff of Valeria 12.3, Plt Count 308, MPV 8.5, Immature Gran % (Auto) 0.400, Neut % (Auto) 54.8, Lymph % (Auto) 32.8, [place] % (Auto) 10.3 H, Eos % (Auto) 0.9, Baso % (Auto) 0.8, Absolute Neuts (auto) 4.1, Absolute Lymphs (auto) 2.45, Nucleated RBC % 0, Sodium 140, Potassium 4.1, Chloride 107, Carbon Dioxide 28.0, Anion Gap 5, BUN 28 H, Creatinine 1.18 H, Estim Creat Clear Calc 31.51, Est GFR (MDRD) Af Amer 57 L, Est GFR (MDRD) Non-Af 47 L, BUN/Creatinine Ratio 23.7 H, Glucose 159 H, Calcium 9.0, Troponin I High Sens 15 01/20/24 00:38: Troponin I High Sens 104 H Rhythm Strip Rhythm Strip: A-fib Rate: 140 Ectopy: None Imaging Radiology Impression Chest X-Ray 01/19/24 22:38 IMPRESSION: No acute cardiopulmonary abnormality. Electronically Signed: Juan Wing MD at 23:19 EDT , Assessment & Plan Assessment/Plan (1) Non-ST elevation myocardial infarction (NSTEMI), initial care episode: (2) Chest pain: QUALIFIERS: Chest pain type: chest pain due to myocardial ischemia Ischemic chest pain type: unspecified angina pectoris type Qualified Code(s): I25.9 - Chronic ischemic heart disease, unspecified (3) Atrial fibrillation with rapid ventricular response: (4) Essential (primary) hypertension: (5) Hyperlipemia: QUALIFIERS: Hyperlipidemia type: unspecified Qualified Code(s): E78.5 - Hyperlipidemia, unspecified (6) Parkinson disease: QUALIFIERS: Dyskinesia presence: unspecified whether dyskinesia Fluctuating manifestations: unspecified whether manifestations fluctuate Qualified Code(s): G20.A1 - Parkinson's disease without dyskinesia, without mention of fluctuations PLAN: Plan 1. Non-ST elevation IN; evidenced by elevated second troponin rising from 15 ng/mL present on admission and rising to 104 pg/mL - Admit to PCU. Hold Eliquis in favor of full-dose Lovenox plus start BASA and Plavix. Continue statin as previous. Serialize troponin. Check echocardiogram to evaluate LVEF. Check Lexiscan nuclear stress test in a.m. to evaluate for suspected underlying ischemia as per cardiology recommendations. Give Tylenol as needed for [id number] (level 1-5 out of 10) pain or fever. Give morphine IV as needed for severe (level 6-10 out of 10) pain. Finally, we will consult [facility] to see this patient on rounds in the a.m. for further recommendations without appreciated in advance. 2. Atrial fibrillation; with rapid ventricular response likely triggering #1 in the setting of known previous chronic atrial fibrillation - Patient cardioverted in the ER back to sinus bradycardia at 55 bpm after treatment with IV Cardizem 20 mg bolus and IV Lopressor 5 mg once. Continue atenolol as previous. 3. Essential hypertension - Resume home regimen plus give as needed IV hydralazine for systolic blood pressure greater than 160 mmHg. 4. Hyperlipidemia - Continue statin and check lipid profile submission in light of #1. 5. Parkinson's disease; on Sinemet - Resume Sinemet as previous. 6. GERD; on Pepcid - Continue Pepcid as previous. 7. Osteoporosis - Noted. 8. OA; with chronic Left-sided low back pain (without sciatica) plus chronic pain in her Left foot - Give Tylenol prn. 9. DVT prophylaxis - Patient will be started on full-dose Lovenox for #1. Total time: Approximately 55 minutes. Charges/Coding Visit Charges Inpatient E&M: 83360 Init Hosp L2
[2024-01-20 03:00] LABS: Magnesium 2.3 mg/dL (1.6-2.6); Phosphorus 3.3 mg/dL (2.5-4.9)
--- NOTE | 2024-01-20 03:28 | ECHOD_ITS ---
Reason For Study: CAD/ASHD Procedure This was a 2D Doppler, Color Flow transthoracic echocardiogram. Exam performed portable in patient room. Left Ventricle Normal left ventricle. Left ventricular systolic function is normal. The estimated ejection fraction is 65 %. No regional wall motion abnormalities noted. Right Ventricle Normal RV size. Normal systolic function. Atria Normal left atrium. Normal right atrium. Mitral Valve Normal mitral valve. Tricuspid Valve Normal tricuspid valve. Aortic Valve Trisinus/trileaflet aortic valve. Pulmonic Valve Normal pulmonic valve. Great Vessels Normal aortic root. The pulmonary artery is normal size. Inferior vena cava collapse with respiration. Pericardium/Pleural No pericardial effusion. MMode/2D Measurements & Calculations LVIDd: 4.3 cm IVSd: 1.1 cm LVOT diam: 2.1 cm LVIDs: 2.4 cm LVPWd: 0.98 cm LVOT area: 3.5 cm2 RVDd: 3.0 cm FS: 44.0 % LAV(MOD-bp): 42.4 ml LVAd ap4: 23.3 cm2 LVAd ap2: 19.5 cm2 LAV(MOD-bp) Indexed: 27.9 ml/m2 LVLd ap4: 7.2 cm LVLd ap2: 6.9 cm LAV(MOD-sp2): 43.9 ml EDV(MOD-sp4): 63.5 ml EDV(MOD-sp2): 47.1 ml LAV(MOD-sp4): 39.1 ml EDV(sp4-el): 64.3 ml EDV(sp2-el): 46.9 ml LVAs ap4: 12.8 cm2 LVAs ap2: 10.5 cm2 LVLs ap4: 5.9 cm LVLs ap2: 5.6 cm ESV(MOD-sp4): 24.3 ml ESV(MOD-sp2): 17.8 ml ESV(sp4-el): 23.5 ml ESV(sp2-el): 16.9 ml EF(MOD-sp4): 61.7 % EF(MOD-sp2): 62.2 % EF(sp4-el): 63.4 % SV(MOD-sp4): 39.2 ml SV(MOD-sp2): 29.3 ml SV(sp4-el): 40.7 ml TAPSE: 2.6 cm LA A4 area: 15.7 cm2 RA A4 area: 17.7 cm2 Time Measurements MV dec time: 0.24 sec Doppler Measurements & Calculations MV E max santy: 65.2 cm/sec Lat Peak E' Santy: 6.0 cm/sec Med Peak E' Santy: 5.6 cm/sec MV A max santy: 65.2 cm/sec E/E' lat: 10.9 E/E' med: 11.5 MV E/A: 1.0 MV P1/2t max santy: 71.2 cm/sec Ao V2 max: 125.1 cm/sec LV V1 max: 83.5 cm/sec MV P1/2t: 72.9 msec Ao max P.3 mmHg LV V1 max P.8 mmHg MV dec slope: 285.8 cm/sec2 Ao V2 mean: 84.8 cm/sec LV V1 mean P.5 mmHg Ao mean P.2 mmHg LV V1 mean: 56.1 cm/sec MVA(P1/2t): 3.0 cm2 Ao V2 VTI: 29.7 cm LV V1 VTI: 22.1 cm AV (velocity ratio): 0.74 JENS(I,D): 2.6 cm2 JENS(V,D): 2.3 cm2 SV(LVOT): 76.7 ml PA V2 max: 76.2 cm/sec PA max PG (full): 1.3 mmHg PA V2 mean: 46.2 cm/sec ECHO/Echo Complete Interpretation Summary Normal left ventricle. Left ventricular systolic function is normal. The estimated ejection fraction is 65 %. Structurally normal valves. Ordering Physician: Joss Vaughn Referring Physician: Quinn Kilpatrick Performed By: Lesa Baumann RVT, RDCS and Student
[2024-01-20 04:50] LABS: Hematocrit 34.7 % (37-47); Hemoglobin 11.2 g/dL (12.0-15.0); Mean Corp Hgb Conc 32.3 g/dL (32-36); Mean Corpuscular Volume 99.1 fL (81-99); Mean Platelet Vol. 8.2 fl (6.2-12.0); Platelet Count 273 K/mm3 (150-450); RBC Distribution Width CV 12.3 % (11.6-14.6); RBC Distribution Width SD 44.9 fl (35.1-43.9); White Blood Count 6.6 K/mm3 (4.4-11.0)
[2024-01-20 05:07] LABS: Scan Indicated on CBC? Y/N NO
[2024-01-20 05:25] LABS: Troponin-I HS 450 pg/mL (3.0-54.0)
[2024-01-20 06:09] LABS: ALB/GLOB Ratio 1.3 RATIO (0.9-2.4); AST(SGOT) 15 U/L (15-37); Alanine Aminotransfer ALT/SGPT 10 U/L (13-56); Albumin, Serum 3.6 g/dL (3.2-5.0); Alkaline Phosphatase 93 U/L (45-117); Anion Gap 5 (5-15); BUN 24 mg/dL (7-18); BUN/Creat Ratio 22.2 RATIO (10-20); Calcium,Total 8.9 mg/dL (8.5-10.1); Chloride 110 mmol/L (98-107); Cholesterol 124 mg/dL (200); Creatinine, Serum 1.08 mg/dL (0.55-1.02); EST Glomerular Filtration Rate 52 mL/min (>60); Est Glom Filt Rate - Afr Amer 63 mL/min (>60); Estimated Creatinine Clearance 33.89 ml/min; Globulin 2.7 g/dL (2.2-4.2); Glucose 105 mg/dL (74-106); High Density Lipoprotein 59 mg/dL; Potassium 4.5 mmol/L (3.5-5.1); Protein, Total 6.3 g/dL (6.4-8.2); Sodium Level 142 mmol/L (136-145); Thyroid Stim Hormone (TSH) 1.08 uIU/mL (0.358-3.74); Triglycerides 100 mg/dL; Very Low Density Lipoprotein 20 mg/dL (5-40)
[2024-01-20] MEDS: Aspirin E.C. 81 MG Tablet PO (06:31)
[2024-01-20] MEDS: Clopidogrel Bisulfate 75 MG Tablet PO (06:31)
[2024-01-20] MEDS: Carbidopa/Levodopa 25/100 Tablet PO ×2 (06:31→09:20)
--- NOTE | 2024-01-20 08:46 | CON.PCM.CA_ITS ---
Assessment & Plan Assessment/Plan (1) Non-ST elevation myocardial infarction (NSTEMI), initial care episode: PLAN: Patient presented with mild chest discomfort and cardiac enzyme elevation and non-ST elevation myocardial infarction. She underwent a cardiac catheterization today which demonstrated minimal obstructive coronary disease. My recommendation at this particular time is to maximize medical therapy. * She can be discharged for outpatient follow-up. (2) Atrial fibrillation with rapid ventricular response: PLAN: She does have paroxysmal atrial fibrillation with a rapid ventricular response rate. She spontaneously converted back to sinus rhythm. The plan is to continue the current medical therapy. She will resume anticoagulation. (3) Essential (primary) hypertension: PLAN: Her blood pressure appears to be suboptimally controlled. Will try and optimize this. Thank you for allowing me to participate in the care of your patient. Please don't hesitate to call if any issues arise. HPI Consult Data Date of Consult: 01/20/24 HPI Narrative HPI Narrative: WILL MUNOZ, is a 78 F who presents to the emergency room with sudden onset left-sided chest discomfort bilateral upper extremity discomfort lasting 1 to 2 hours. She was seen in the emergency room and EKG was done which demonstrated evidence of atrial fibrillation. She did have a syncopal episode approximately 2 weeks ago when she was at a track meet. The etiology was not entirely clear. She spontaneously converted to sinus rhythm during this visit but her cardiac enzymes were abnormal and cardiology was asked to see patient. She has a history of hypertension, hyperlipidemia, Parkinson's disease who presented to the emergency room at [facility] on 03/17/2021. She had been complaining of some chest pressure as well as fatigue and palpitations. When she went to lie down she felt her heart racing. The symptoms lasted approximately 20 minutes. She had had a stressful weekend as she had gone for an out of town wedding. She presented to the emergency room and was noted to be in atrial fibrillation with a rapid ventricular response rate of approximately 144 bpm. She was given intravenous diltiazem twice and converted to sinus rhythm with a heart rate of 58 bpm. To the best of her knowledge this was the first time she had gone into atrial fibrillation. She did have a stress test in 2014 where she exercised to a high metabolic workload of 9.3 metabolic equivalents with no evidence of ischemia. Her recent lipid profile from a year ago had demonstrated total cholesterol 247 LDL of 154 and HDL of 53. As part of her work-up for atrial fibrillation she had an echocardiogram which demonstrated an ejection fraction of 60%. From a cardiac standpoint, the patient is doing well. She denies any palpitations, chest pain, pressure or heaviness. She denies SOB, Orthopnea, and PND. She does not have bleeding issues; no blood in urine, stool or nosebleeds. She denies any decrease in energy level, myalgias, or claudication. She does not have edema, or sudden weight gain. She does have occasional lightheadedness after taking carbidopa-levodopa. She denies dizziness, syncopal or near syncopal episodes, and headaches. [facility] Medical History Atrial fibrillation with rapid ventricular response (03/17/22) Chronic pain in left foot Parkinson disease Left-sided low back pain without sciatica Osteoporosis Hyperlipemia Essential (primary) hypertension Home Medications ?Medication ?Instructions ?Recorded ?Last Taken ?Type famotidine 40 mg tablet 40 mg PO DAILY 03/22/22 Unknown History magnesium glycinate 200 mg PO DAILY 03/22/22 Unknown History apixaban 5 mg tablet (Eliquis) 5 mg PO BID #60 tabs 04/10/22 Unknown Rx carbidopa ER 50 mg-levodopa 200 mg 0.5 tab PO Q6H 05/20/23 Unknown History tablet,extended release multivitamin (Daily Multi-Vitamin 1 tab PO DAILY 05/20/23 Unknown History tablet) atenolol 25 mg tablet 12.5 mg PO BID 11/03/23 Unknown History amlodipine 2.5 mg tablet 2.5 mg PO DAILY PRN HTN 11/25/23 Unknown History rosuvastatin 10 mg tablet (Crestor) 10 mg PO DAILY 11/25/23 Unknown History Allergy/AdvReac Type Severity Reaction Status Date / Time meloxicam (From [facility]) Allergy Unknown Swelling Verified 11/25/23 10:13 mold Allergy Unknown cough Verified 11/25/23 10:13 Penicillins Allergy Swelling Verified 11/25/23 10:13 Social History Smoking Status: Never smoker alcohol intake: never substance use type: does not use caffeine: Yes Type: coffee ROS Constitutional Constitutional: Denies fever(s) or weight loss Eyes Eyes: Reports systems reviewed and no addt'l complaints, except as documented ENT HEENT: Reports systems reviewed and no addt'l complaints, except as documented Cardiovascular Cardiovascular: Denies chest pain at rest, chest pain with activity, dyspnea at rest, dyspnea on exertion, edema, palpitations or paroxysmal nocturnal dyspnea Respiratory/Chest Respiratory/Chest: Denies dyspnea on exertion, productive cough, shortness of breath at rest or shortness of breath with exertion Gastrointestinal Gastrointestinal: Denies change in bowel habits, nausea, vomiting or weight changes Genitourinary Genitourinary: Denies difficulty urinating Musculoskeletal Musculoskeletal: Denies joint stiffness or muscle weakness Integumentary Integumentary: Denies lesions Neurologic Neurologic: Denies dizziness or syncope Psychiatric Psychiatric: Denies anxiety Endocrine Endocrinology: Denies excessive sweating or fatigue Hematologic/Lymphatic Hematologic/Lymphatic: Denies anemia Allergic/Immunologic Allergic/Immunologic: Denies seasonal rhinorrhea Physical Exam Const alert, oriented x3 and no apparent distress General Appearance: cooperative HEENT hearing grossly normal bilaterally Head and Scalp: atraumatic Eyes EOMs intact bilaterally Neck General: normal visual inspection Chest inspection of chest normal and palpation of chest normal Resp normal respiratory effort Auscultation: clear to auscultation bilaterally Cardio regular rate, regular rhythm, S1 normal heart sound and S2 normal heart sound Jugular Venous Distention: JVD GI normal to inspection, nondistended, normoactive bowel sounds Extremity normal capillary refill and no pedal edema Peripheral Pulses: Yes pulses 2+ throughout and femoral pulses present Skin no rashes or lesions noted Neuro oriented x3 and CN's II-XII intact bilaterally Psych Appearance: grossly normal and appropriate Risk Stratification Risk Stratification Applicable: Yes Age >/= 65: Yes >/= 3 CAD Risk Factors (HTN, HLD, DM, family hx of CAD, or current smoker): Yes Aspirin Use in the Past 7 Days: No Severe Angina (>/= episodes in 24 hours): No EKG ST Changes >/= 0.5mm: No Positive Cardiac Marker: Yes ARNULFO Risk Stratification Score: 3 ARNULFO % Risk: 13% Risk Objective Data Vital Signs: Vital Signs Temp Pulse Resp BP Pulse Ox O2 Del Method 98.3 F 64 16 159/79 H 96 Room Air 01/20/24 06:30 01/20/24 06:30 01/20/24 06:30 01/20/24 06:30 01/20/24 06:55 01/20/24 06:55 Oxygen Delivery Method Room Air Weight: 110 lb 3.698 oz Body Mass Index (BMI) 18.9 Lab / Micro Data 01/20/24 04:23 01/20/24 04:23 Labs: Laboratory Results - last 24 hr 01/19/24 22:34: WBC 7.5, RBC 3.62 L, Hgb 11.6 L, Hct 36.4 L, MCV 100.6 H, MCH 32.0, MCHC 31.9 L, RDW Std Deviation 45.7 H, RDW Coeff of Valeria 12.3, Plt Count 308, MPV 8.5, Immature Gran % (Auto) 0.400, Neut % (Auto) 54.8, Lymph % (Auto) 32.8, [place] % (Auto) 10.3 H, Eos % (Auto) 0.9, Baso % (Auto) 0.8, Absolute Neuts (auto) 4.1, Absolute Lymphs (auto) 2.45, Nucleated RBC % 0, Sodium 140, Potassium 4.1, Chloride 107, Carbon Dioxide 28.0, Anion Gap 5, BUN 28 H, C reatinine 1.18 H, Estim Creat Clear Calc 31.51, Est GFR (MDRD) Af Amer 57 L, Est GFR (MDRD) Non-Af 47 L, BUN/Creatinine Ratio 23.7 H, Glucose 159 H, Calcium 9.0, Troponin I High Sens 15 01/20/24 00:38: Phosphorus 3.3, Magnesium 2.3, Troponin I High Sens 104 H 01/20/24 04:23: WBC 6.6, RBC 3.50 L, Hgb 11.2 L, Hct 34.7 L, MCV 99.1 H, MCH 32.0, MCHC 32.3, RDW Std Deviation 44.9 H, RDW Coeff of Valeria 12.3, Plt Count 273, MPV 8.2, Sodium 142, Potassium 4.5, Chloride 110 H, Carbon Dioxide 27.0, Anion Gap 5, BUN 24 H, Creatinine 1.08 H, Estim Creat Clear Calc 33.89, Est GFR (MDRD) Af Amer 63, Est GFR (MDRD) Non-Af 52 L, BUN/Creatinine Ratio 22.2 H, Glucose 105, Calcium 8.9, Total Bilirubin 0.30, AST 15, ALT 10 L, Alkaline Phosphatase 93, Troponin I High Sens 450 H*, Total Protein 6.3 L, Albumin 3.6, Globulin 2.7, Albumin/Globulin Ratio 1.3, Triglycerides 100, Cholesterol 124, LDL Cholesterol 45, VLDL Cholesterol 20, HDL Cholesterol 59, TSH 1.08 Rhythm Strip Rhythm Strip: A-fib Rate: 140 Ectopy: None Cardiology Labs/Tests 01/19/24 22:34: WBC 7.5, RBC 3.62 L, Hgb 11.6 L, Hct 36.4 L, MCV 100.6 H, MCH 32.0, MCHC 31.9 L, Plt Count 308, MPV 8.5, Immature Gran % (Auto) 0.400, Neut % (Auto) 54.8, Lymph % (Auto) 32.8, [place] % (Auto) 10.3 H, Eos % (Auto) 0.9, Baso % (Auto) 0.8, Absolute Neuts (auto) 4.1, Nucleated RBC % 0, Sodium 140, Potassium 4.1, Chloride 107, Carbon Dioxide 28.0, Anion Gap 5, BUN 28 H, Creatinine 1.18 H , Est GFR (MDRD) Af Amer 57 L, Est GFR (MDRD) Non-Af 47 L, BUN/Creatinine Ratio 23.7 H, Glucose 159 H, Calcium 9.0 01/20/24 00:38: Phosphorus 3.3, Magnesium 2.3 01/20/24 04:23: WBC 6.6, RBC 3.50 L, Hgb 11.2 L, Hct 34.7 L, MCV 99.1 H, MCH 32.0, MCHC 32.3, Plt Count 273, MPV 8.2, Sodium 142, Potassium 4.5, Chloride 110 H, Carbon Dioxide 27.0, Anion Gap 5, BUN 24 H, Creatinine 1.08 H, Est GFR (MDRD) Af Amer 63, Est GFR (MDRD) Non-Af 52 L, BUN/Creatinine Ratio 22.2 H, Glucose 105, Calcium 8.9, Total Bilirubin 0.30, Triglycerides 100, Cholesterol 124, LDL Cholesterol 45, VLDL Cholesterol 20, HDL Cholesterol 59 Rhythm: EKG: ECHO: Stress Test: Cardiac Cath: PCI: CT Surgery: Holter monitor: EPS: PPM: CXR: Chest CT Scan: Radiography Diagnostic Testing: Radiology Impression Chest X-Ray 01/19/24 22:38 IMPRESSION: No acute cardiopulmonary abnormality. Electronically Signed: Juan Wing MD at 23:19 EDT ,
--- NOTE | 2024-01-20 08:46 | CL.D_ITS ---
Patient Name: WILL MUNOZ Study Date: 01/20/2024 Performing: Michel Lilly MD Ht: 64 inches 162.56 cm : 1945 Wt: 110.23 lbs 50 kg Age: 78 Gender: female BSA: 1.52 PROCEDURE(S) PERFORMED [id number])LHC/COR/LV CLINICAL PROFILE AND INDICATIONS Indications: Suspected CAD Heart Failure: None Stress/Imaging Stress/Image Study Performed: No CAD Presentations: Symptom unlikely to be ischemic. CONCLUSIONS Minimal coronary disease. Preserved left ventricular systolic function. Troponin elevation likely from tachycardia mediated. RECOMMENDATIONS Medical therapy. DESCRIPTION OF PROCEDURE The patient arrived to the procedure lab. The risks and benefits of the procedure as well as a full description of our services here and current unavailability of surgical backup were fully explained to the patient and/or their significant other prior to the catheterization. The Timeout was completed, verifying the correct patient and procedure. The patient's procedural site was prepped and draped in the usual fashion. Local anesthetic was given subcutaneously to right radial region with Lidocaine 2%. Using a modified Seldinger technique, arterial access was obtained via the right radial artery, a 6Fr sheath was inserted. Left Coronary Artery selective angiography was performed in multiple views using a 5 Fr. 4.0 Duvall catheter. Right Coronary Artery selective angiography was then performed in multiple views using a 5 Fr. 4.0 Duvall catheter. Left Ventriculography was performed in NG projection using a 5 Fr. Pigtail catheter. LV to AO pullback pressures were then recorded.The arterial sheath was pulled and a TR Band was applied for hemostasis, 10cc of air CORONARY ANGIOGRAPHY DOMINANCE: Right Dominant LEFT HEART ASSESSMENT Left Ventricular Ejection Fraction: by LV Gram 60 % Normal LV wall motion Normal Left Ventricular systolic function LEFT MAIN: Angiographically normal LEFT ANTERIOR DESCENDING ARTERY: Mild luminal irregularities less than 30% DIAGONAL 1: Ostial - 50 % Stenosis CIRCUMFLEX ARTERY: Mild luminal irregularities less than 30% RIGHT CORONARY ARTERY: Mild luminal irregularities less than 30% COMPLICATIONS No Complications PROCEDURE MEDICATIONS Versed 1 mg IV Fentanyl 50 mcg IV Oxygen: 2 L/min via nasal cannula Heparin given IA 01/20/2024 08:18:14 Verapamil 2.5mg, Ntg 100mcgs, 3000 units of Heparin given IA 01/20/2024 08:18:14 SUMMARY OF HEMODYNAMIC DATA Time AIR REST ECG 08:10:21 AO 161/70 (107) SA 08:33:04 LV 154/9, 17 08:36:49 LV 157/9, 17 08:36:57 LV 147/19, 22 08:37:43 LVp 150/10, 20 08:37:56 AOp 0/-51 (60) 08:38:03 Signed By Michel Lilly MD On 01/20/2024 08:45:25 Michel Lilly MD
[2024-01-20] MEDS: Enoxaparin 60 MG/0.6 ML Syringe 50 MG SC (09:19)
[2024-01-20] MEDS: Famotidine 20 MG Tablet 40 MG PO (09:20)
[2024-01-20] MEDS: Atenolol 25 MG Tablet PO (09:20)
[2024-01-20] MEDS: Multivitamins,Therapeutic Tablet 1 TABLET PO (09:20)
[2024-01-20] MEDS: Magnesium Chloride 64 MG Delay Rel.Tablet PO (09:20)
--- NOTE | 2024-01-20 09:55 | CASEMGMT ---
Insurance review for hospitals In-network with?[employer] M[employer] insurance if transfer is recommended is as follows: [facility], [facility], [facility], [facility], [facility], [facility] ([facility]), [facility], [facility], and . Selena Barajas, Discharge Planning Asst.
--- NOTE | 2024-01-20 12:00 | PCM.DC.SUM ---
Providers Date of Admission: 01/20/24 Date of Discharge: 02/18/24 Primary Care Physician: Dr. Quinn Kilpatrick, Consultations 01/20/24 03:28 Consult: Cardiology Routine Consulting Provider: James Ireland Reason for Consult: Chest Pain EMERGENT Consult: No MD Notified: Yes Date Notified: 01/20/24 Time Notified: 06:43 Method of Notification: Text Method of Consult:: In-Person Reason For Visit: NON-ST ELEVATION MS LIKELY TRIGGERED BY AFIB WITH Diagnosis Discharge Diagnosis (1) Non-ST elevation myocardial infarction (NSTEMI), initial care episode: Status: Acute Code(s): I21.4 - Non-ST elevation (NSTEMI) myocardial infarction (2) Atrial fibrillation with rapid ventricular response: Status: Acute Code(s): I48.91 - Unspecified atrial fibrillation (3) Essential (primary) hypertension: Status: Chronic Code(s): I10 - Essential (primary) hypertension Medications at Discharge Home Medications famotidine 40 mg tablet 40 mg PO DAILY 03/22/22 magnesium glycinate 200 mg PO DAILY 03/22/22 apixaban 5 mg tablet (Eliquis) 5 mg PO BID #60 tabs 04/10/22 carbidopa ER 50 mg-levodopa 200 mg tablet,extended release 0.5 tab PO Q6H 05/20/23 multivitamin (Daily Multi-Vitamin tablet) 1 tab PO DAILY 05/20/23 atenolol 25 mg tablet 12.5 mg PO BID 11/03/23 amlodipine 2.5 mg tablet 2.5 mg PO DAILY PRN HTN 11/25/23 rosuvastatin 10 mg tablet (Crestor) 10 mg PO DAILY 11/25/23 aspirin 81 mg tablet,delayed release 81 mg PO BREAKFAST #90 tabs 01/20/24 Hospital Course Summary of Care Provided Minutes Spent on Discharge: 35 Hospital Course: Patient is a 78-year-old lady with multiple comorbidities admitted with chest pain was found to have elevated troponin consistent with acute non-STEMI treatment initiated per protocol patient admitted to a monitored bed 1. Acute non-STEMI ?Patient admitted to monitored bed treatment initiated per protocol. Consult placed to cardiology, subsequently underwent underwent a cardiac catheterization today which demonstrated minimal obstructive coronary disease. Cardiology recommended optimization of medical therapy 2. Paroxysmal A-fib ? Presented with rapid ventricular response did respond to Cardizem and Lopressor 3. Hypertension - Blood pressure controlled, home medications continued with dose adjustment as needed 4. Dyslipidemia -Patient is on statin therapy, continued at home dose 5. Parkinson's disease ? Patient is on Sinemet continued Physical Exam Narrative GENERAL: cooperative HEENT: Atraumatic; normocephalic EYES; Anicteric, Normal Conjunctiva NECK; supple, normal thyroid, RESPIRATORY: Diminished to auscultation CARDIOVASCULAR: Regular S1 S2, GI: soft, normoactive bowel sounds, : No Renal angle tenderness; EXTREMITIES: No edema, no clubbing, MUSCULOSKELETAL: no muscle wasting NEURO: Awake; no lateralizing signs. SKIN: No Rash PSYCH; Flat affect Weight / BMI Weight Weight: 50 kg Body Mass Index (BMI) 18.9 ABG / Lab / Microbiology Data 01/20/24 04:23 01/20/24 04:23 Laboratory: Laboratory Results - last 24 hr 01/19/24 22:34: WBC 7.5, RBC 3.62 L, Hgb 11.6 L, Hct 36.4 L, MCV 100.6 H, MCH 32.0, MCHC 31.9 L, RDW Std Deviation 45.7 H, RDW Coeff of Valeria 12.3, Plt Count 308, MPV 8.5, Immature Gran % (Auto) 0.400, Neut % (Auto) 54.8, Lymph % (Auto) 32.8, Glenn % (Auto) 10.3 H, Eos % (Auto) 0.9, Baso % (Auto) 0.8, Absolute Neuts (auto) 4.1, Absolute Lymphs (auto) 2.45, Nucleated RBC % 0, Sodium 140, Potassium 4.1, Chloride 107, Carbon Dioxide 28.0, Anion Gap 5, BUN 28 H, Creatinine 1.18 H, Estim Creat Clear Calc 31.51, Est GFR (MDRD) Af Amer 57 L, Est GFR (MDRD) Non-Af 47 L, BUN/Creatinine Ratio 23.7 H, Glucose 159 H, Calcium 9.0, Troponin I High Sens 15 01/20/24 00:38: Phosphorus 3.3, Magnesium 2.3, Troponin I High Sens 104 H 01/20/24 04:23: WBC 6.6, RBC 3.50 L, Hgb 11.2 L, Hct 34.7 L, MCV 99.1 H, MCH 32.0, MCHC 32.3, RDW Std Deviation 44.9 H, RDW Coeff of Valeria 12.3, Plt Count 273, MPV 8.2, Sodium 142, Potassium 4.5, Chloride 110 H, Carbon Dioxide 27.0, Anion Gap 5, BUN 24 H, Creatinine 1.08 H, Estim Creat Clear Calc 33.89, Est GFR (MDRD) Af Amer 63, Est GFR (MDRD) Non-Af 52 L, BUN/Creatinine Ratio 22.2 H, Glucose 105, Calcium 8.9, Total Bilirubin 0.30, AST 15, ALT 10 L, Alkaline Phosphatase 93, Troponin I High Sens 450 H*, Total Protein 6.3 L, Albumin 3.6, Globulin 2.7, Albumin/Globulin Ratio 1.3, Triglycerides 100, Cholesterol 124, LDL Cholesterol 45, VLDL Cholesterol 20, HDL Cholesterol 59, TSH 1.08 Radiography Diagnostic Testing: Radiology Impression Chest X-Ray 01/19/24 22:38 IMPRESSION: No acute cardiopulmonary abnormality. Electronically Signed: Juan Wing MD at 23:19 EDT , D/C Instructions Discharge Diet: No restrictions Discharge Activity: Return to Normal Activity Call your doctor if you observe: Fever of 101 or Higher, Shortness of breath, Fainting spells and Chest pain Meaningful Use Info Meaningful Use Meaningful Use Diagnoses (Choose all that apply): AMI AMI/Post PCI/Angioplasty Aspirin given w/in 24hrs of arrival?: Yes ASA at discharge?: Yes Antiplatelet Therapy at Discharge:: No Statins at discharge?: Yes Vernon/ARB at discharge?: No Reason Vernon/ARB not ordered:: Not indicated Beta Olya at discharge?: Yes Done w/ Acute MS measure.: Yes Documented LVEF (%): 60 Ischemic Stroke Statin Dosing Therapy Reference: STATIN DOSE THERAPY REFERENCE: * Patients > 75 years receive moderate or high dose statin therapy. * Patients 75 years or YOUNGER should receive HIGH intensity statin dose unless contraindicated. You will be required to document reason for non-treatment if statin daily dose does not meet guidelines. HIGH DOSE STATIN THERAPY DAILY Atorvastatin > than or = to 40 mg Rosuvastatin > than or = to 20 mg Amlodipine + Atorvastatin > than or = to 2.5/40 mg Ezetimibe + Simvastatin 10/80 mg Simvastatin 80mg Discharge Plan Admission Admit Date/Time: 01/20/24 02:40 Attending Provider: Joss Jacob Primary Care Provider: Quinn Kilpatrick Consulting Providers: Joss Vaughn; Keyona Meza; Ruddy Gonzalez; Holly Perales; Lavelle Gary; Michel Lilly; Ramsey Valentine; Levon aWlsh; Juan Dodson; Sabrina Fuentes; Christiano Luna; Hans Whalen CLAM GROWER; Keyona Le CLAM GROWER; Sirena Molina PA Discharge Orders/Prescriptions Prescriptions: New aspirin 81 mg Tablet,Delayed Release (Dr/Ec) 81 mg PO BREAKFAST Qty: 90 0RF Continued carbidopa-levodopa 50-200 mg tablet extended release 0.5 tab PO Q6H famotidine 40 mg tablet 40 mg PO DAILY Patient Comments: TAKE 1 TABLET BY MOUTH EVERY DAY magnesium glycinate 100 mg magnesium capsule 200 mg PO DAILY Rx Instructions: once a day after a meal multivitamin [Daily Multi-Vitamin] Tablet 1 tab PO DAILY amlodipine 2.5 mg tablet 2.5 mg PO DAILY PRN (Reason: HTN) rosuvastatin [Crestor] 10 mg tablet 10 mg PO DAILY Eliquis 5 mg tablet 5 mg PO BID Qty: 60 11RF atenolol 25 mg tablet 12.5 mg PO BID Referrals / Follow Up: Michel Lilly MD [Med Staff - Active Staff] - Within 1 Month Quinn Kilpatrick DO [Primary Care Provider] - Within 2 Weeks Disposition Disposition (needs filled in before D/C Order can be placed): Home, Self Care Charges/Coding Visit Charges Inpatient E&M: 63874 Disch Hosp >30min
--- NOTE | 2024-01-20 12:18 | CASEMGMT ---
CIERA TOLBERT Assessment Face to Face with patient for initial transition planning/care coordination assessment. RN CM introduced self and role at [facility], pt voices understanding. Pt is A&Ox4 and is resting comfortably in bed and is calm. Pt at bedside. Care providers, pharmacy, and demographics verified. Admitting dx: NSTEMI LACE Strata: 1 PCP: Quinn Kilpatrick Specialists: FANG. Neuro trough [facility] in [place] Preferred Pharmacy: [facility] Insurance: [facility] Prescription Benefit: Yes LNOK: Lopez Gonzalez (H) Living Arrangements: Pt lives with her in a split level home with 1 step to enter. Pt reports there are about 5-6 steps to manage to get to the lower and upper portions of the house ADLs/IADLs: States ind Transportation: Self, DME: Denies all DME uses or needs at this time HHC/SNF: Denies history or needs Pt?s goal: Home no needs Plan: Pt is planned for DC today and states feeling safe discharging with no additional needs. Pt denies HHC and OP therapy needs. CM to follow for safe DC home. Maryan King RN, CM
--- NOTE | 2024-01-20 15:58 | CHAPLAIN ---
Type of Pastoral Visit ___ Initial Visit ___ Follow-up Visit ___ On-call Visit ___ General Patient Visit ___ Spiritual Assessment ___ Family Conference ___ Bereavement ___ Rapid Response ___ Code Blue ___ Other (describe below) Pastoral Care Referral From ___ Patient ___ Family ___ Nurse ___ Physician ___ Meat Products Demonstrator ___ Emergency Management Consultant ___ Other (describe below) Sacrament/Intervention ___ Active listening ___ Anointing ___ Tenriism ___ Bereavement ___ Communion ___ Marisa exploration ___ ___ Life review ___ Prayer ___ Reconciliation ___ Sacrament of Sick ___ Supportive presence ___ Wedding ___ Other (describe below) Pastoral Comments at time of attempted visit, the patient had already been discharged
== END 2024-01-20 14:13 | disposition home or self-care (01) | DRG 282 ==
LOC: ED 01-20 02:18 → PCU 01-20 03:04
PROVIDERS: Admitting Provider Internal Medicine; Emergency Provider Emergency Medicine; PCP Preventive Medicine Occupational Medicine; Visit Provider Internal Medicine
DX: I48.0 Paroxysmal atrial fibrillation (principal); I21.4 Non-ST elevation (NSTEMI) myocardial infarction; G20.A1 Parkinson's disease without dyskinesia, without mention of fluctuations; I10 Essential (primary) hypertension; E78.5 Hyperlipidemia, unspecified; K21.9 Gastro-esophageal reflux disease without esophagitis; M54.50 Low back pain, unspecified; I25.10 Atherosclerotic heart disease of native coronary artery without angina pectoris; M81.0 Age-related osteoporosis without current pathological fracture; G89.29 Other chronic pain
CPT/HCPCS: 36415; 71045; 80048; 80053; 80061; 83735; 84100; 84443; 84484; 85025; 85027; 93005; 93306; 93458; 99152; 99153; 99285; J7040; Q9967; A4216; C1769; C1894

== ENCOUNTER → 2024-12-02 | Outpatient (CLI) | payer MEDICARE, SELFPAY ==
--- NOTE | 2024-12-02 10:07 | CDU_ITS ---
Reason For Study Reason For Study: Syncope Rt. Velocities/BP Lt. Velocities/BP Prox CCA 42.2/10.2 cm/sec. Prox CCA 56.3/12.8 cm/sec. Mid CCA 62.2/13.3 cm/sec. Mid CCA 62.9/15.7 cm/sec. Dist CCA 59.6/10.7 cm/sec. Dist CCA 50.6/11.9 cm/sec. Prox ICA 45.0/10.1 cm/sec. Prox ICA 38.1/7.5 cm/sec. Mid ICA 61.0/15.7 cm/sec. Mid ICA 136.3/28.5 cm/sec. Dist ICA 63.9/20.4 cm/sec. Dist ICA 109.6/14.8 cm/sec. Rt. ICA/CCA = 1.0. Lt. ICA/CCA = 2.2. Prox ECA 76.1/6.2 cm/sec. Prox ECA 62.9/2.5 cm/sec. Rt. Vert. 57.2/13.8 cm/sec. Lt. Vert. 39.0/8.9 cm/sec. Right Extracranial There is homogeneous, smooth atherosclerotic plaque noted in the right common carotid artery. There is homogeneous, smooth atherosclerotic plaque noted in the right internal carotid artery. There is intimal thickening but no significant atherosclerotic plaque noted in the right external carotid artery. Antegrade flow is noted in the right vertebral artery. Left Extracranial There is homogeneous, smooth atherosclerotic plaque noted in the left common carotid artery. There is heterogeneous, irregular atherosclerotic plaque noted in the left internal carotid artery. There is homogeneous, smooth atherosclerotic plaque noted in the left external carotid artery. Antegrade flow is noted in the left vertebral artery. Procedure Carotid Duplex [id number]. This is a Carotid Duplex examination using B-mode, color flow and specral Doppler. Exam performed in department. VL/Carotid Duplex Ultrasound Interpretation Summary Mild (<50%) stenosis right extracranial internal carotid. Moderate (50-69%) stenosis left extracranial internal carotid. Patent and antegrade vertebrals bilaterally. Ordering Physician: Sirena Molina Referring Physician: MD Quinn Kilpatrick Performed By: Marisa Hensley RVT
== END | disposition home or self-care (01) ==
PROVIDERS: PCP Preventive Medicine Occupational Medicine; Referring Provider Physician Assistant Medical; Visit Provider Physician Assistant Medical
DX: R55 Syncope and collapse (principal)
CPT/HCPCS: 93225; 93226; 93880

== ENCOUNTER → 2025-01-20 | Outpatient (CLI) | payer MEDICARE, SELFPAY ==
[2025-01-20 17:21] LABS: Anion Gap 9 (5-15); BUN 27 mg/dL (4-19); BUN/Creat Ratio 22.5 RATIO (10-20); Calcium,Total 8.8 mg/dL (7.6-11.0); Carbon Dioxide 26.3 mmol/L (21.0-32.0); Chloride 105 mmol/L (98-108); Creatinine, Serum 1.18 mg/dL (0.70-1.20); EST Glomerular Filtration Rate 47 (>60); Glucose 114 mg/dL (70-99); Potassium 4.1 mmol/L (3.3-5.1); Sodium Level 141 mmol/L (133-145)
== END | disposition home or self-care (01) ==
LOC: LAB 15:53
PROVIDERS: PCP Preventive Medicine Occupational Medicine; Referring Provider Nurse Practitioner Gerontology; Visit Provider Nurse Practitioner Gerontology
DX: I10 Essential (primary) hypertension (principal)
CPT/HCPCS: 36415; 80048